=== PATIENT | female | born 1955 | race Caucasian/White ===

== ENCOUNTER 2023-06-09 19:47 | Inpatient (IN) | payer MEDICARE, OTHER, SELFPAY ==
[2023-06-09] VITALS (11 sets, daily range): BP systolic 80–165; BP diastolic 42–96; PULSE 56–179; RESP 14–30; TEMP 35.6–35.9; O2SAT 93–100; BMI 31.8; BMI 30.6
[2023-06-09] MEDS: Etomidate 20 MG/10 ML Vial IV (19:59)
[2023-06-09] MEDS: Rocuronium Bromide 50 MG/5 ML Vial IV (19:59)
[2023-06-09] MEDS: fentaNYL 100 MCG/2 ML Ampul IV (20:05)
--- NOTE | 2023-06-09 20:05 | RAD_ITS ---
STUDY: X-RAY CHEST REASON FOR EXAM: Female, 68 years old. PLACEMENT TECHNIQUE: Single AP portable view of the chest. COMPARISON: None. FINDINGS: The endotracheal tube has the tip approximately 2.2 cm above ronald. The nasogastric tube has the tip below the diaphragm but not included in the [id number]. The lungs are underexpanded with mild vascular crowding, otherwise clear. There is no demonstrated pleural abnormality. Normal size heart. Normal mediastinum and deenilson. Normal visualized pulmonary arteries. Normal visualized aortic arch and descending thoracic aorta. Normal visualized thoracic spine. Normal visualized ribs, clavicles, and shoulders. There is no demonstrated abnormality of the visualized soft tissue structures of the upper abdomen. RAD/Chest 1 View (Portable) IMPRESSION: Lines and tubes as described. No acute cardiopulmonary disease. Electronically Signed: Jaky Arredondo MD at 20:24 EDT ,
--- NOTE | 2023-06-09 20:08 | EKG12_ITS ---
Test Reason : STEMI Blood Pressure : / mmHG Vent. Rate : 054 BPM Atrial Rate : 054 BPM P-R Int : 140 ms QRS Dur : 074 ms QT Int : 412 ms P-R-T Axes : 000 036 097 degrees QTc Int : 390 ms Critical Test Result: STEMI Sinus bradycardia Low voltage QRS ST elevation consider inferolateral injury or acute infarct ACUTE HI / STEMI Consider right ventricular involvement in acute inferior infarct Abnormal ECG Confirmed by BORIS VANESSA, SILVIA ([id number]), editor sound ZACHARY BOYD ([id number]) on 06/25/2023 2:06:13 PM Referred By: Kelsey Marte Confirmed By:TIA MARTE MD
[2023-06-09 20:12] LABS: Absolute Lymphocyte Count 4.51 X10^3/uL (0.83-4.51); Absolute Neutrophil Count 4.8 X10^3/uL (2.0-7.7); Basophil# 0.06 X10^3/uL; Basophil% 0.6 % (0-1); Eosinophil# 0.19 X10^3/uL; Eosinophils% 1.8 % (0-5); Hematocrit 43.4 % (37-47); Hemoglobin 14.1 g/dL (12.0-15.0); Lymphocyte # 4.51 X10^3/ul (0.83-4.51); Lymphocyte % 43.8 % (19-41); Mean Corp Hgb Conc 32.5 g/dL (32-36); Mean Corpuscular Hgb 29.1 pg (27.0-32.0); Mean Corpuscular Volume 89.7 fL (81-99); Mean Platelet Vol. 11.5 fl (6.2-12.0); Monocyte# 0.72 X10^3/uL; NRBC Flagged by Analyzer 0 % (0-5); Neutrophil # 4.78 X10^3/uL (2.7-7.7); Neutrophil % 46.5 % (47-70); Platelet Count 269 K/mm3 (150-450); RBC Distribution Width CV 13.1 % (11.6-14.6); RBC Distribution Width SD 42.3 fl (35.1-43.9); Red Blood Count 4.84 M/mm3 (4.2-5.4); White Blood Count 10.3 K/mm3 (4.4-11.0)
[2023-06-09 20:30] LABS: Anion Gap 6 (5-15); BUN 12 mg/dL (7-18); BUN/Creat Ratio 12.4 RATIO (10-20); Calcium,Total 8.7 mg/dL (8.5-10.1); Chloride 106 mmol/L (98-107); Creatinine, Serum 0.97 mg/dL (0.55-1.02); EST Glomerular Filtration Rate 61 mL/min (>60); Est Glom Filt Rate - Afr Amer 74 mL/min (>60); Estimated Creatinine Clearance 53.41 ml/min; Glucose 167 mg/dL (74-106); Potassium 3.6 mmol/L (3.5-5.1); Sodium Level 139 mmol/L (136-145); Troponin-I HS (w/2H Reflex) 13 pg/mL (3.0-54.0)
--- NOTE | 2023-06-09 20:49 | PCM.HP.STD ---
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 Patient was driving when her chest pain started. She pulled over and called the paramedics. History was taken from emergency department doctor and patient's ED nurse as patient was unresponsive and was on mechanical ventilation at the time of examination. Reportedly patient describes the chest pain as heaviness. Her chest pain started about 45-minute before presentation. Patient was brought to emergency department by paramedics. Enroute to the hospital patient was given aspirin, Brilinta and heparin. A STEMI alert was called prehospitalization. Reportedly patient had ST elevation in leads II, III, and aVL. She had reciprocal T wave inversions. At the emergency department patient coded. Compression was done. Patient received epinephrine; amiodarone and lidocaine. Patient was shocked 2 times at the emergency department. After the first shock she went into torsades and was given magnesium. She was taken to the House Supervisor where she coded again and had ACLS with a compression and epinephrine. Also she went to V. tach so she was given amiodarone.. [facility] Medical History no medical history no medical history Home Medications NK 06/09/23 [History Last Taken Unknown] Allergy/AdvReac Type Severity Reaction Status Date / Time No Known Allergies Allergy Verified 06/09/23 20:46 unable to obtain Surgical History no surgical history unable to obtain Social History (Updated 06/09/23 @ 21:[address] Gómez Leal MD) Smoking Status: Never smoker ROS Review of Systems ROS Unobtainable: due to mental status Vital Signs Vital Signs Vital Signs: 06/09/23 19:47 06/09/23 20:47 Temperature 96.6 F L Temperature Source Temporal Pulse Rate 56 L Respiratory Rate 20 H Blood Pressure 147/94 H Blood Pressure Mean 111 Pulse Ox 98 Oxygen Delivery Method Room Air Room Air Weight Weight: 89.7 kg Body Mass Index (BMI) 31.8 Physical Exam Narrative Physical exam: General: Well-nourished, well-developed. Head: Normocephalic, atraumatic, no tenderness Eyes: Dilated pupils. Clear conjunctiva. ENT: Intubated and mechanical ventilation. Neck: Nontender, No thyromegaly. CVS: Regular rate and rhythm. S1-S2 present. No murmur, gallop or rub. Respiratory : clear to auscultation bilaterally, chest wall nontender Abdomen: Soft, nontender, nondistended, normal bowel sounds, no masses : Deferred Back: Nontender, no CVA tenderness, no midline spinal tenderness, deformities, step-offs Extremities: Symmetrical muscle mass. Skin: Normal color, no trauma, abrasions Neuro: Comatose, on mechanical ventilation. Pupils are dilated. Psychiatry: Comatose on mechanical ventilation. Results Lab / Micro Data 06/09/23 20:00 06/09/23 20:00 Labs: Laboratory Results - last 24 hr 06/09/23 20:00: WBC 10.3, RBC 4.84, Hgb 14.1, Hct 43.4, MCV 89.7, MCH 29.1, MCHC 32.5, RDW Std Deviation 42.3, RDW Coeff of Vlad 13.1, Plt Count 269, MPV 11.5, Immature Gran % (Auto) 0.300, Neut % (Auto) 46.5 L, Lymph % (Auto) 43.8 H, [place] % (Auto) 7.0, Eos % (Auto) 1.8, Baso % (Auto) 0.6, Absolute Neuts (auto) 4.8, Absolute Lymphs (auto) 4.51, Nucleated RBC % 0, Sodium 139, Potassium 3.6, Chloride 106, Carbon Dioxide 27.0, Anion Gap 6, BUN 12, Creatinine 0.97, Estim Creat Clear Calc 53.41, Est GFR (MDRD) Af Amer 74, Est GFR (MDRD) Non-Af 61, BUN/Creatinine Ratio 12.4, Glucose 167 H, Calcium 8.7, Troponin I High Sens 13 Radiology Impression Chest X-Ray 06/09/23 20:05 IMPRESSION: Lines and tubes as described. No acute cardiopulmonary disease. Electronically Signed: Jaky Arredondo MD at 20:24 EDT , Assessment & Plan Assessment/Plan (1) STEMI (ST elevation myocardial infarction): QUALIFIERS: Involved coronary artery: unspecified coronary artery Qualified Code(s): I21.3 - ST elevation (STEMI) myocardial infarction of unspecified site (2) Cardiac arrest: PLAN: Plan STEMI with cardiac arrest Taken to the House Supervisor. Cardiology to do further interventions. Follow recommendations. Patient was stabilized in CODE BLUE at a cardiac cath. Patient achieved ROSC. Amiodarone drip was ordered. Check lipid panel and A1c. CBC was reviewed. CBC was normal. Radiologist chest x-ray with no acute cardiopulmonary disease. Chest x-ray was independently interpreted; agrees with radiology interpretation. DVT prophylaxis Received heparin prehospitalization. SCDs ordered. Time spent in the patient's overall evaluation,decision-making process, review of diagnostic data, adjustment of management, discussion with other providers, nursing nursing and ancillary staff involved in patient's care documentation, 75 minutes. Charges/Coding Visit Charges Inpatient E&M: 00266 Init Hosp L3
[2023-06-09] MEDS: Amiodarone 360 MG in Dextrose 5% Viaflo Bag 192.8 ML 33.3 MG CONT INF (21:00)
--- NOTE | 2023-06-09 21:40 | ED.RN ---
Pt was given Heparin 4,000 units @ 193, 324 ASA @ 192, and 180 brilinta @ 193 by EMS. Also given a total of 3 nitro anf 4mg zofran EMS before arrival.
[2023-06-09] MEDS: EPTIFIBATIDE 75 MG/100 ML VIAL 7.2 MG CONT INF (21:45)
[2023-06-09 22:10] LABS: Reflex Troponin-HS? (from REC) Y
[2023-06-09 22:31] LABS: Allen Test Positive; Base Excess -3 mmol/L (-2 to +2); Bicarbonate 22.4 mmol/L (22-26); Blood Gas Specimen Type ART; Mode AC; O2 Delivery Device Adult Vent; PEEP 8; PO2 58 mmHG (75-100); RR 18; SITE L Radial; SO2 90 % (95-99); Total Carbon Dioxide 24 mmol/L; pCO2 37.7 mmHg (35-45); pH 7.38 (7.35-7.45)
[2023-06-09 22:45] LABS: Hematocrit 45.9 % (37-47); Hemoglobin 14.8 g/dL (12.0-15.0); Mean Corp Hgb Conc 32.2 g/dL (32-36); Mean Corpuscular Volume 89.8 fL (81-99); Mean Platelet Vol. 11.1 fl (6.2-12.0); Platelet Count 236 K/mm3 (150-450); RBC Distribution Width CV 12.9 % (11.6-14.6); RBC Distribution Width SD 42.3 fl (35.1-43.9); Red Blood Count 5.11 M/mm3 (4.2-5.4)
[2023-06-09 23:08] LABS: Troponin-I HS 901 pg/mL (3.0-54.0)
--- NOTE | 2023-06-09 23:08 | ED.VIS.CHEST ---
HPI History of Present Illness Chief Complaint: Chest Pain Informant: patient and EMS Narrative Narrative: 68-year-old female presenting to the emergency room with chief complaint of chest pain. Patient states that this afternoon/evening she was mowing her lawn. When she got off and it was in the house she noticed a chest pressure and some nausea. She associates it with some shortness of breath. She drives to the [facility] and was driving this evening when the symptoms became more severe and she needed to pulling unit floorhand. EMS was called. They note that she walked to the cot. Prehospital EKG was obtained which demonstrates changes consistent with acute inferior coronary syndrome. EMS administered Brilinta aspirin and heparin. They also gave nitroglycerin which did not significantly alter her blood pressure. Patient notes that she has no significant medical problems. There is a familial history of coronary disease with her father however she does not remember exactly what was wrong with him. She states she currently takes no medications and has no allergies. She rarely drinks alcohol does not smoke. [facility] Home Medications NK 06/09/23 [History Last Taken Unknown] Allergy/AdvReac Type Severity Reaction Status Date / Time No Known Allergies Allergy Verified 06/09/23 20:46 Social History (Updated 06/09/23 @ 23:[address] Benson Morales, DO) Smoking Status: Never smoker substance use type: does not use EXAM Physical Exam Const Vital Signs: 06/09/23 19:47 06/09/23 20:47 06/09/23 20:00 Temperature 96.6 F L Temperature Source Temporal Pulse Rate 56 L 98 Respiratory Rate 20 H 14 Blood Pressure 147/94 H Blood Pressure Mean 111 Pulse Ox 98 99 Oxygen Delivery Method Room Air Room Air Fraction of Inspired Oxygen (FIO2) 100 Positive well nourished and well developed General Appearance ED: well developed HEENT Reports normocephalic, head/scalp atraumatic and moist mucous membranes Eyes PERRL and EOMs intact bilaterally Neck no lymphadenopathy, supple and no JVD Resp normal respiratory effort and clear to auscultation bilaterally Cardio regular rate, regular rhythm and no murmurs GI normal to inspection, nondistended, normoactive bowel sounds and non-tender Palpation: soft Back/Spine no CVA tenderness and normal ROM Extremity normal to inspection General Extremety ED: Negative for edema General Extremity: Negative for edema Neuro oriented x3 and CN's II-XII intact bilaterally Sensorium / Orientation: alert Motor Exam: strength 5/5 throughout Psych mental status grossly normal Mood & Affect: Negative for depressed or tearful Skin no rashes or lesions noted and no wounds Skin Narrative: Patient is slightly diaphoretic Heart Score History: Highly Suspicious ECG: Significant ST-Depression Age: >/= 65 years Risk Factors: 1 or 2 Risk Factors Troponin: </= Normal Limit Score: 7 MDM MDM MDM Narrative Medical decision making narrative: Patient brought to resuscitation bay. Interventional cardiology as well as Box Repairer had been notified prehospital. She was expectant therefore ED staff was on hand upon her arrival. IV was established we continued supplemental oxygen and placed her on the monitor. While interviewing the patient she became unresponsive and was found to be in ventricular fibrillation. CPR was immediately started by this physician. Epinephrine was administered and circulated. At rhythm check she was in ventricular fibrillation and a 200 J shock was delivered. CPR was continued and amiodarone was administered. During this next round the patient seemingly regained consciousness was found to be in a sinus rhythm. She began to vomit and it appeared to be in torsades de pointes. The patient was holding her own emesis bag and attempting to speak looking around the room. She once again fell unconscious and went into ventricular fibrillation. Second defibrillation was given as well as lidocaine and magnesium. Patient went into a sinus rhythm with ectopy with continued ST elevation inferiorly. Patient underwent rapid sequence intubation using etomidate and rocuronium. An 8?0 endotracheal tube was placed on the first attempt without any difficulty and secured into place at 24 cm. Equal breath sounds bilaterally color change capnography and my interpretation of the chest x-ray postintubation is adequate placement of the endotracheal tube. The chest x-ray also demonstrated a normal mediastinal silhouette. No effusion or evidence of significant pulmonary edema. OG tube was then placed by this physician. IV fluids were continued and she was placed on a propofol drip. Patient briefly became hypotensive which resolved. Box Repairer was ready and we took the patient to the Box Repairer in critical condition. Initial blood work returned which showed a troponin of 13 hemoglobin 14.1 and a creatinine 0.97. Interventional cardiology was updated as well as hospitalist. History & Record Review Discussion w/independent historian: EMS personnel and Patient Additional record(s) reviewed:: No prior records Lab Data Attestation: I reviewed the patient's lab results. Labs: Laboratory Results - last 24 hr 06/09/23 20:00 WBC 10.3 RBC 4.84 Hgb 14.1 Hct 43.4 MCV 89.7 MCH 29.1 MCHC 32.5 RDW Std Deviation 42.3 RDW Coeff of Vlad 13.1 Plt Count 269 MPV 11.5 Immature Gran % (Auto) 0.300 Neut % (Auto) 46.5 L Lymph % (Auto) 43.8 H Turner % (Auto) 7.0 Eos % (Auto) 1.8 Baso % (Auto) 0.6 Absolute Neuts (auto) 4.8 Absolute Lymphs (auto) 4.51 Nucleated RBC % 0 Sodium 139 Potassium 3.6 Chloride 106 Carbon Dioxide 27.0 Anion Gap 6 BUN 12 Creatinine 0.97 Estim Creat Clear Calc 53.41 Est GFR (MDRD) Af Amer 74 Est GFR (MDRD) Non-Af 61 BUN/Creatinine Ratio 12.4 Glucose 167 H Calcium 8.7 Troponin I High Sens 13 Radiography Diagnostic Testing: Clinical Impression(s) from Imaging Studies Chest X-Ray 06/09/23 20:05 IMPRESSION: Lines and tubes as described. No acute cardiopulmonary disease. Electronically Signed: Jayk Arredondo MD at 20:24 EDT , EKG Initial EKG: Attestation: I personally reviewed and interpreted this EKG as follows: Interpretation: Sinus Rhythm Comments: Inferior elevation 2 3 aVF with reciprocal changes. Prior EKG tracings: not available for review Prior: No Prior Management Discussion w/another healthcare provider: Hospitalist and Kennel Helper (Interventional cardiology) Critical Care Time Critical Care Time: Yes Critical care time (excluding procedures): 30-74 minutes (35 min), Including time spent:, Discussing w/Patient &/or Family/Certified Midwife, Discussing w/Consultants, Arranging Admission or Transfer and Performing Direct Patient Care at Bedside Discharge Plan Disposition Disposition: Acute Care Hospital [facility] Discharge Date/Time: 06/09/23 20:14
[2023-06-09] MEDS: fentaNYL drip 100 ML 2.5 MCG CONT INF (23:15)
[2023-06-09] MEDS: Propofol 10MG/Ml 1,000 MG/100 ML Bottle 5.4 MG CONT INF (23:15)
[2023-06-09] MEDS: 0.9% Saline Lock 10 ML Syringe IV ×2 (23:22→23:42)
[2023-06-09] MEDS: Ondansetron 4 MG/2 ML Vial IV (23:22)
[2023-06-09 23:23] LABS: CPK Total, Creatine Kinase 155 U/L (26-192); Triglycerides 113 mg/dL
[2023-06-09] MEDS: Chlorhexidine 15 ML PO (23:44)
[2023-06-09] MEDS: TICAGRELOR 90 MG TABLET PO (23:46)
[2023-06-09] MEDS: Atorvastatin Calcium 40 MG Tablet PO (23:47)
[2023-06-10] VITALS (35 sets, daily range): BP systolic 66–119; BP diastolic 50–72; PULSE 53–61; RESP 14–18; TEMP 36.3–38.5; O2SAT 92–100; BMI 30.6
[2023-06-10] MEDS: 0.9% Normal Saline 1,000 ML 999 ML IV ×2 (01:35→03:45)
[2023-06-10 02:09] LABS: Hematocrit 39.4 % (37-47); Hemoglobin 12.7 g/dL (12.0-15.0); Mean Corp Hgb Conc 32.2 g/dL (32-36); Mean Corpuscular Hgb 29.2 pg (27.0-32.0); Mean Corpuscular Volume 90.6 fL (81-99); Mean Platelet Vol. 11.3 fl (6.2-12.0); Platelet Count 247 K/mm3 (150-450); RBC Distribution Width CV 13.1 % (11.6-14.6); RBC Distribution Width SD 43.2 fl (35.1-43.9); Red Blood Count 4.35 M/mm3 (4.2-5.4); White Blood Count 10.9 K/mm3 (4.4-11.0)
[2023-06-10 02:30] LABS: Hemoglobin A1c 6.9 % (3.8-5.6)
[2023-06-10 02:31] LABS: Phosphorus 3.6 mg/dL (2.5-4.9)
[2023-06-10 02:59] LABS: AST(SGOT) 335 U/L (15-37); Alanine Aminotransfer ALT/SGPT 229 U/L (13-56); Albumin, Serum 2.7 g/dL (3.2-5.0); Alkaline Phosphatase 56 U/L (45-117); Anion Gap 9 (5-15); BUN 11 mg/dL (7-18); BUN/Creat Ratio 10.6 RATIO (10-20); Calcium,Total 7.2 mg/dL (8.5-10.1); Chloride 106 mmol/L (98-107); Cholesterol 224 mg/dL (200); Creatinine, Serum 1.04 mg/dL (0.55-1.02); EST Glomerular Filtration Rate 56 mL/min (>60); Est Glom Filt Rate - Afr Amer 68 mL/min (>60); Estimated Creatinine Clearance 49.81 ml/min; Globulin 2.8 g/dL (2.2-4.2); Glucose 262 mg/dL (74-106); High Density Lipoprotein 33 mg/dL; Magnesium 2.4 mg/dL (1.6-2.6); Potassium 3.4 mmol/L (3.5-5.1); Protein, Total 5.5 g/dL (6.4-8.2); Sodium Level 139 mmol/L (136-145); Triglycerides 156 mg/dL; Very Low Density Lipoprotein 31 mg/dL (5-40)
[2023-06-10] MEDS: Amiodarone 360 MG in Dextrose 5% Viaflo Bag 192.8 ML 16.7 MG CONT INF (03:01)
[2023-06-10] MEDS: proCHLORPERazine 10 MG/2 ML Vial 5 MG IV (04:01)
[2023-06-10] MEDS: CHLORHEXIDINE GLUC 2% CLOTH 1 EACH TOWELETTE TOPICAL (04:02)
[2023-06-10] MEDS: EPTIFIBATIDE 75 MG/100 ML VIAL 7.2 MG CONT INF (04:04)
--- NOTE | 2023-06-10 06:08 | CON.PCM.CC_ITS ---
Assessment & Plan Assessment/Plan (1) Cardiac arrest: (2) STEMI (ST elevation myocardial infarction): QUALIFIERS: Involved coronary artery: unspecified coronary artery Qualified Code(s): I21.3 - ST elevation (STEMI) myocardial infarction of unspecified site PLAN: Plan RECOMMENDATIONS: 1. Continue assist-control mode of mechanical ventilation. Wean FiO2/PEEP to maintain oxygen saturations at or above 90%. 2. Continue propofol and fentanyl for sedation. 3. If needed, Levophed can be initiated to maintain hemodynamic stability. 4. Obtain echocardiogram. 5. Continue appropriate GI prophylaxis. 6. Hold on tube feed initiation today. 7. Plan for daily paired spontaneous awakening and breathing trials beginning tomorrow. IMPRESSIONS: 1. Acute hypoxemic respiratory failure status post cardiac arrest The patient presented to the hospital initially with chest pain and subsequently experienced a V-fib cardiac arrest, with eventual ROSC following ACLS. She was taken to the cardiac catheterization lab where intervention was ultimately performed. The patient will be continued on assist control mode of mechanical ventilation. FiO2 and PEEP can be weaned to maintain oxygen saturations at or above 90%. 2. V-fib cardiac arrest The patient is status postintervention by cardiology. Plan to continue current supportive care with ongoing medical management, per cardiology recommendations. 3. Elevated transaminases Likely secondary to tissue hypoperfusion in the setting of cardiac arrest. Continue to trend liver function profile. 4. Hypokalemia Electrolyte repletion as ordered. Recheck chemistry profile in the morning. TIME: 35 minutes of critical care time, independent of procedures, was spent addressing the patient's acute hypoxemic respiratory failure, status post V-fib cardiac arrest, review of all data and collaboration with the care team. HPI Consult Data Date of Consult: 06/11/23 HPI Narrative Reason for Consultation: Respiratory failure HPI Narrative: The patient is a 68-year-old female, with a history as outlined below, who presented to the emergency department via EMS on June 09 with chest pain. The patient apparently developed chest discomfort after mowing her lawn. History pertinent to her hospitalization was obtained primarily via chart review, as the patient is currently intubated and sedated. On presentation to the emergency department, the patient was initially noted to be afebrile and hemodynamically stable. Prehospital EKG obtained by EMS services demonstrated findings concerning for acute coronary syndrome. Shortly after arriving to the emergency department, the patient became unresponsive and was noted to be in ventricular fibrillation. ACLS was initiated and defibrillation was performed. Multiple rounds of ACLS was completed with epinephrine, lidocaine and magnesium administered, prior to ROSC. She was emergently intubated. The patient was urgently taken to the cardiac catheteri zation lab, where intervention was performed. Postintervention, the patient was transferred to the medical intensive care unit for further management. Creatinine is mildly elevated at 1.04. The patient remains on assist control mode of mechanical ventilation with minimal support requirement. [facility] Medical History no medical history Home Medications NK 06/09/23 [History Last Taken Unknown] Allergy/AdvReac Type Severity Reaction Status Date / Time No Known Allergies Allergy Verified 06/09/23 20:46 Family History unable to obtain Surgical History unable to obtain Social History (Updated 06/09/23 @ 23:[address] Benson Morales, DO) Smoking Status: Never smoker substance use type: does not use ROS Review of Systems ROS Unobtainable: due to endotracheal tube Physical Exam Const Constitutional Narrative: Intubated, sedated and mechanically ventilated. No ventilator dyssynchrony. HEENT normocephalic and head/scalp atraumatic Mouth: endotracheal tube in place Eyes PERRL, EOMs intact bilaterally and conjunctivae normal Neck supple General: trachea midline Chest inspection of chest normal Resp normal respiratory effort Auscultation: Negative for rales, rhonchi or wheezes Cardio S1 normal heart sound and S2 normal heart sound Rate: bradycardia GI normal to inspection, nondistended, normoactive bowel sounds Extremity no clubbing, cyanosis or edema Skin no rashes or lesions noted Neuro Sensorium / Orientation: sedated on vent Lab / Micro Data 06/11/23 04:20 06/11/23 04:20 Labs: Laboratory Results - last 24 hr 06/09/23 20:00: WBC 10.3, RBC 4.84, Hgb 14.1, Hct 43.4, MCV 89.7, MCH 29.1, MCHC 32.5, RDW Std Deviation 42.3, RDW Coeff of Vlad 13.1, Plt Count 269, MPV 11.5, Immature Gran % (Auto) 0.300, Neut % (Auto) 46.5 L, Lymph % (Auto) 43.8 H, [place] % (Auto) 7.0, Eos % (Auto) 1.8, Baso % (Auto) 0.6, Absolute Neuts (auto) 4.8, Absolute Lymphs (auto) 4.51, Nucleated RBC % 0, Sodium 139, Potassium 3.6, Chloride 106, Carbon Dioxide 27.0, Anion Gap 6, BUN 12, Creatinine 0.97, Estim Creat Clear Calc 53.41, Est GFR (MDRD) Af Amer 74, Est GFR (MDRD) Non-Af 61, BUN/Creatinine Ratio 12.4, Glucose 167 H, Calcium 8.7, Troponin I High Sens 13 06/09/23 22:38: WBC 15.0 H, RBC 5.11, Hgb 14.8, Hct 45.9, MCV 89.8, MCH 29.0, MCHC 32.2, RDW Std Deviation 42.3, RDW Coeff of Vlad 12.9, Plt Count 236, MPV 11.1, Total Creatine Kinase 155, Troponin I High Sens 901 H*, Triglycerides 113 06/10/23 02:00: WBC 10.9, RBC 4.35, Hgb 12.7, Hct 39.4, MCV 90.6, MCH 29.2, MCHC 32.2, RDW Std Deviation 43.2, RDW Coeff of Vlad 13.1, Plt Count 247, MPV 11.3, Sodium 139, Potassium 3.4 L, Chloride 106, Carbon Dioxide 24.0, Anion Gap 9, BUN 11, Creatinine 1.04 H, Estim Creat Clear Calc 49.81, Est GFR (MDRD) Af Amer 68, Est GFR (MDRD) Non-Af 56 L, BUN/Creatinine Ratio 10.6, Glucose 262 H, Hemoglobin A1c 6.9 H, Calcium 7.2 L, Phosphorus 3.6, Magnesium 2.4, Total Bilirubin 0.90, AST 335 H, ALT 229 H, Alkaline Phosphatase 56, Total Protein 5.5 L, Albumin 2.7 L, Globulin 2.8, Albumin/Globulin Ratio 1.0, Triglycerides 156, Cholesterol 224 H, LDL Cholesterol 160 H, VLDL Cholesterol 31, HDL Cholesterol 33 L ABG Data ABG results: ABG 06/09/23 22:26 Specimen Type ART Sample Site L Radial pH 7.38 Bicarbonate Actual 22.4 Total CO2 24 Base Excess -3 L O2 Saturation 90 L O2 % 100.0 ABG pCO2 37.7 ABG pO2 58 L Josh Test Positive Respiration Rate 18 O2 Delivery Device Adult Vent Vent Mode AC Tidal Volume 450.0 POC PEEP 8 Radiology Impression Chest X-Ray 06/09/23 20:05 IMPRESSION: Lines and tubes as described. No acute cardiopulmonary disease. Electronically Signed: Jaky Arredondo MD at 20:24 EDT , Charges/Coding Procedures Hospitalists Procedures: [id number] Critial Care 1st Hr
[2023-06-10 06:37] LABS: Hemoglobin 12.3 g/dL (12.0-15.0); Mean Corp Hgb Conc 32.4 g/dL (32-36); Mean Corpuscular Hgb 29.4 pg (27.0-32.0); Mean Corpuscular Volume 90.9 fL (81-99); Mean Platelet Vol. 11.5 fl (6.2-12.0); Platelet Count 211 K/mm3 (150-450); RBC Distribution Width CV 13.2 % (11.6-14.6); RBC Distribution Width SD 43.6 fl (35.1-43.9); Red Blood Count 4.18 M/mm3 (4.2-5.4)
--- NOTE | 2023-06-10 07:06 | ECHOCS_ITS ---
Reason For Study: s/p OR Procedure This was a 2D Doppler, Color Flow transthoracic echocardiogram. Contrast injection was performed. Exam performed portable in ICU/CCU. Left Ventricle Normal LV size. The estimated ejection fraction is 50-55 %. Right Ventricle Normal right ventricle. Normal systolic function. Atria Normal left atrium. Normal right atrium. Mitral Valve The mitral valve is structurally normal. No prolapse or stenosis seen. Trivial mitral valve insufficiency. Aortic Valve The aortic valve is not well visualized. Pulmonic Valve The pulmonic valve is not well visualized. Great Vessels Normal aortic root. Pericardium/Pleural No pericardial effusion. Medication Diluted definity 1.5ml given slow IV push to enhance endocardial definition. MMode/2D Measurements & Calculations LVIDd: 4.8 cm IVSd: 0.79 cm Ao root diam: 3.0 cm LVIDs: 2.9 cm LVPWd: 0.86 cm RVDd: 2.5 cm FS: 40.2 % LAV(MOD-bp): 49.3 ml LVAd ap4: 27.0 cm2 SV(MOD-sp4): 48.6 ml LAV(MOD-bp) Indexed: 25.2 ml/m2 LVLd ap4: 8.0 cm LAV(MOD-sp2): 42.0 ml EDV(MOD-sp4): 76.8 ml LAV(MOD-sp4): 54.6 ml EDV(sp4-el): 77.7 ml LVAs ap4: 14.2 cm2 LVLs ap4: 6.3 cm ESV(MOD-sp4): 28.2 ml ESV(sp4-el): 27.0 ml EF(MOD-sp4): 63.3 % EF(sp4-el): 65.3 % SV(sp4-el): 50.7 ml LA A4 area: 20.1 cm2 LA dimension(2D): 3.7 cm RA A4 area: 8.8 cm2 Time Measurements MV dec time: 0.20 sec Doppler Measurements & Calculations MV E max javy: 70.6 cm/sec Lat Peak E' Javy: 8.5 cm/sec Med Peak E' Javy: 8.8 cm/sec MV A max javy: 95.8 cm/sec E/E' lat: 8.3 E/E' med: 8.0 MV E/A: 0.74 Ao V2 max: 156.1 cm/sec LV V1 max: 116.2 cm/sec MV dec slope: 346.3 cm/sec2 Ao max P.8 mmHg LV V1 max P.4 mmHg Ao V2 mean: 103.7 cm/sec Ao mean P.0 mmHg Ao V2 VTI: 34.1 cm PA V2 max: 77.7 cm/sec TR max javy: 241.5 cm/sec TR max P.3 mmHg ECHO/Echo Complete W/ Contrast Interpretation Summary The estimated ejection fraction is 50-55 %. No significant valvular abnormality noted No prior echocardiogram to compare. Ordering Physician: Jarrett Escobar Referring Physician: Kelsey Marte Performed By: Yolanda Sol, RDCS, RVT
[2023-06-10] MEDS: TITRATION PARAMETER CHANGE 1 EACH IV (07:30)
--- NOTE | 2023-06-10 07:30 | PCM.PN.HOSP ---
Reason for Visit Reason for Visit: Diagnoses ST elevation (STEMI) myocardial infarction of unspecified site (06/09/23) Cardiac arrest, cause unspecified (06/09/23) Subjective Subjective On ventilator. Denying any current pain. Objective Data Objective Data Vital Signs: Vital Signs Temp Pulse Resp BP Pulse Ox O2 Del Method FiO2 37.7 C H 56 L 16 87/70 L 95 Mechanical Ventilator 40 06/10/23 06:00 06/10/23 07:00 06/10/23 07:00 06/10/23 07:00 06/10/23 07:00 06/10/23 07:00 06/10/23 07:00 Oxygen Delivery Method Mechanical Ventilator Weight: 86.5 kg Body Mass Index (BMI) 30.6 Intake & Output: Intake and Output for Last 24 Hours 06/08/23 06/09/23 06/10/23 23:59 23:59 23:59 Intake Total 53.33 / 57.18 2844.38 / 2844.38 Output Total 1950 / 1950 1050 / 1050 Balance -1896.67 / -1892.82 1794.38 / 1794.38 Lab / Micro Data 06/10/23 06:10 06/10/23 02:00 Labs: Laboratory Results - last 24 hr 06/09/23 20:00: WBC 10.3, RBC 4.84, Hgb 14.1, Hct 43.4, MCV 89.7, MCH 29.1, MCHC 32.5, RDW Std Deviation 42.3, RDW Coeff of Vlad 13.1, Plt Count 269, MPV 11.5, Immature Gran % (Auto) 0.300, Neut % (Auto) 46.5 L, Lymph % (Auto) 43.8 H, [place] % (Auto) 7.0, Eos % (Auto) 1.8, Baso % (Auto) 0.6, Absolute Neuts (auto) 4.8, Absolute Lymphs (auto) 4.51, Nucleated RBC % 0, Sodium 139, Potassium 3.6, Chloride 106, Carbon Dioxide 27.0, Anion Gap 6, BUN 12, Creatinine 0.97, Estim Creat Clear Calc 53.41, Est GFR (MDRD) Af Amer 74, Est GFR (MDRD) Non-Af 61, BUN/Creatinine Ratio 12.4, Glucose 167 H, Calcium 8.7, Troponin I High Sens 13 06/09/23 22:38: WBC 15.0 H, RBC 5.11, Hgb 14.8, Hct 45.9, MCV 89.8, MCH 29.0, MCHC 32.2, RDW Std Deviation 42.3, RDW Coeff of Vlad 12.9, Plt Count 236, MPV 11.1, Total Creatine Kinase 155, Troponin I High Sens 901 H*, Triglycerides 113 06/10/23 02:00: WBC 10.9, RBC 4.35, Hgb 12.7, Hct 39.4, MCV 90.6, MCH 29.2, MCHC 32.2, RDW Std Deviation 43.2, RDW Coeff of Vlad 13.1, Plt Count 247, MPV 11.3, Sodium 139, Potassium 3.4 L, Chloride 106, Carbon Dioxide 24.0, Anion Gap 9, BUN 11, Creatinine 1.04 H, Estim Creat Clear Calc 49.81, Est GFR (MDRD) Af Amer 68, Est GFR (MDRD) Non-Af 56 L, BUN/Creatinine Ratio 10.6, Glucose 262 H, Hemoglobin A1c 6.9 H, Calcium 7.2 L, Phosphorus 3.6, Magnesium 2.4, Total Bilirubin 0.90, AST 335 H, ALT 229 H, Alkaline Phosphatase 56, Total Protein 5.5 L, Albumin 2.7 L, Globulin 2.8, Albumin/Globulin Ratio 1.0, Triglycerides 156, Cholesterol 224 H, LDL Cholesterol 160 H, VLDL Cholesterol 31, HDL Cholesterol 33 L 06/10/23 06:10: WBC 8.0, RBC 4.18 L, Hgb 12.3, Hct 38.0, MCV 90.9, MCH 29.4, MCHC 32.4, RDW Std Deviation 43.6, RDW Coeff of Vlad 13.2, Plt Count 211, MPV 11.5 ABG Data ABG results: ABG 06/09/23 22:26 Specimen Type ART Sample Site L Radial pH 7.38 Bicarbonate Actual 22.4 Total CO2 24 Base Excess -3 L O2 Saturation 90 L O2 % 100.0 ABG pCO2 37.7 ABG pO2 58 L Josh Test Positive Respiration Rate 18 O2 Delivery Device Adult Vent Vent Mode AC Tidal Volume 450.0 POC PEEP 8 Radiography Diagnostic Testing: Radiology Impression Chest X-Ray 06/09/23 20:05 IMPRESSION: Lines and tubes as described. No acute cardiopulmonary disease. Electronically Signed: Jaky Arredondo MD at 20:24 EDT , Physical Exam Const alert and no apparent distress Constitutional Narrative: intubated. HEENT head/scalp atraumatic and moist oral mucous membranes Resp normal respiratory effort, no retractions, no use of accessory muscles and clear to auscultation bilaterally Cardio regular rate, regular rhythm, S1 normal heart sound and S2 normal heart sound GI normal to inspection, nondistended, normoactive bowel sounds, soft to palpation, non-tender, non-distended and hepatosplenomegaly Extremity normal to inspection Neuro moves all extremities and no focal motor deficits Assessment & Plan Assessment/Plan (1) STEMI (ST elevation myocardial infarction): QUALIFIERS: Involved coronary artery: unspecified coronary artery Qualified Code(s): I21.3 - ST elevation (STEMI) myocardial infarction of unspecified site PLAN: s/p PCI w BASILIA to RCA on ASA, ticagrelor, statin. continue Integrellin per cardiology. check echo cardiology following. (2) Cardiac arrest: PLAN: Vfib arrest in ED. Received epinephrine and subsequent defibrillation. Started on amiodarone gtt. Developed sinus rhythm. Subsequently developed torsade de pointes, then vfib arrest again. Defbrillabated again. Then received lidocaine and magnesium with conversion to sinus rhythm. Likely secondary to STEMI. Continue amiodarone gtt. (3) Acute respiratory failure with hypoxia: PLAN: Secondary to cardiac arrest ABG w pO2 of 58. Intubated in ED. Vent mgmt per CCM (4) Cardiogenic shock: PLAN: Improved 2/2 STEMI BP dropped down to 66/50. norepinephrine if needed. (5) Hyperglycemia: PLAN: may be reactive, but cannot rule out undiagnosed diabetes start SSI check a1c. (6) Hypokalemia: PLAN: replacement ordered monitor PLAN: Plan VTE prophylaxis: SCDs DW patient's family at [facility]. Charges/Coding Visit Charges Inpatient E&M: 73747 Subs Hosp L3
[2023-06-10] MEDS: Aspirin E.C. 81 MG Tablet PO (08:02)
[2023-06-10] MEDS: Potassium Chloride 10mEq/100mL 10 MEQ/100 ML IV.SOLN. 100 MEQ IV BOLUS ×4 (08:02→11:21)
[2023-06-10] MEDS: TICAGRELOR 90 MG TABLET PO ×2 (08:03→22:21)
[2023-06-10] MEDS: Chlorhexidine 15 ML PO ×2 (08:03→22:25)
[2023-06-10] MEDS: Famotidine 20 MG Tablet PO ×2 (08:03→22:22)
[2023-06-10 08:52] LABS: Hemoglobin A1c 6.9 % (3.8-5.6)
[2023-06-10] MEDS: 0.9% Saline Lock 10 ML Syringe IV (11:21)
[2023-06-10] MEDS: Insulin Lispro 100 UNIT/ML INSULN.PEN SC (11:26)
[2023-06-10 11:41] LABS: Bedside Glucose 159 mg/dL (74-106)
--- NOTE | 2023-06-10 12:05 | PCM.CONS.C ---
Assessment & Plan Assessment/Plan (1) STEMI (ST elevation myocardial infarction): QUALIFIERS: Involved coronary artery: unspecified coronary artery Qualified Code(s): I21.3 - ST elevation (STEMI) myocardial infarction of unspecified site PLAN: Continue dual antiplatelet therapy, statin. Patient's blood pressure is on the low side. She required Levophed yesterday. If her blood pressure remains stable overnight then we will start her on a beta-deborah tomorrow. Okay to discontinue Integrilin. (2) Cardiac arrest: PLAN: Secondary to V-fib secondary to inferior ST elevation [place]. No further events after revascularization. Okay to discontinue amiodarone. (3) Cardiogenic shock: PLAN: Improving. Currently off pressors. Will monitor. (4) Acute respiratory failure with hypoxia: HPI Consult Data Date of Consult: 06/10/23 HPI Narrative Reason for Consultation: STEMI HPI Narrative: ALEJANDRA SAWYER, is a 68 F who presents with chest pain. She had called 911 and the EKG done outside the hospital revealed inferior ST elevation [place] and a STEMI alert was called. Soon after presenting to the emergency room patient went into V-fib cardiac arrest and was defibrillated. She subsequently again went into torsades and was also having vomiting. She was intubated and brought emergently to the cardiac Warning Coordination Meteorologist. In the Warning Coordination Meteorologist, prior to getting draped patient again went into V-fib arrest followed by asystole. Resuscitation was performed according to ACLS protocol and eventually patient returned to normal sinus rhythm. She went emergent coronary angiography which revealed 100% occlusion of the RCA that was treated with thrombectomy and drug-eluting stent placement. Patient was initially hypotensive requiring Levophed. Her blood pressure improved at the end of the procedure and Levophed was tapered off. Patient was also given 3 A of bicarb. Initially she was hypoxic on 100% FiO2. Her PEEP was increased and eventually her O2 sats improved. Patient was then transferred to the CCU for further management. Overnight she had an uneventful course. She was on amnio drip and Integrilin drip overnight. Patient started waking up and was responding to commands and responding to questions appropriately. Her Integrilin and amiodarone are being discontinued and she is on low-dose sedation and tolerating it well. Review of systems: Review of systems cannot be obtained as patient is intubated and sedated. [facility] Medical History no medical history Home Medications NK 06/09/23 [History Last Taken Unknown] Allergy/AdvReac Type Severity Reaction Status Date / Time No Known Allergies Allergy Verified 06/09/23 20:46 Family History unable to obtain Surgical History unable to obtain Social History (Updated 06/09/23 @ 23:[address] Benson Morales, DO) Smoking Status: Never smoker substance use type: does not use Physical Exam Const Constitutional Narrative: Intubated, sedated HEENT normocephalic Eyes no scleral icterus Resp clear to auscultation bilaterally Cardio regular rate Extremity no pedal edema Skin no rashes or lesions noted Risk Stratification Risk Stratification Applicable: No Charges/Coding Visit Charges Inpatient E&M: 44927 Init Hosp L2 Objective Data Vital Signs: Vital Signs Temp Pulse Resp BP Pulse Ox O2 Del Method FiO2 100.7 F H 59 L 14 119/68 92 Mechanical Ventilator 30 06/10/23 10:00 06/10/23 11:00 06/10/23 11:00 06/10/23 11:00 06/10/23 11:00 06/10/23 11:00 06/10/23 11:00 Oxygen Delivery Method Mechanical Ventilator Weight: 190 lb 11.198 oz Body Mass Index (BMI) 30.6 Intake & Output: Intake and Output for Last 24 Hours 06/08/23 06/09/23 06/10/23 23:59 23:59 23:59 Intake Total 53.33 / 57.18 3420.88 / 3420.88 Output Total 1950 / 1950 1050 / 1050 Balance -1896.67 / -1892.82 2370.88 / 2370.88 Lab / Micro Data 06/10/23 06:10 06/10/23 02:00 Labs: Laboratory Results - last 24 hr 06/09/23 20:00: WBC 10.3, RBC 4.84, Hgb 14.1, Hct 43.4, MCV 89.7, MCH 29.1, MCHC 32.5, RDW Std Deviation 42.3, RDW Coeff of Vlad 13.1, Plt Count 269, MPV 11.5, Immature Gran % (Auto) 0.300, Neut % (Auto) 46.5 L, Lymph % (Auto) 43.8 H, [place] % (Auto) 7.0, Eos % (Auto) 1.8, Baso % (Auto) 0.6, Absolute Neuts (auto) 4.8, Absolute Lymphs (auto) 4.51, Nucleated RBC % 0, Sodium 139, Potassium 3.6, Chloride 106, Carbon Dioxide 27.0, Anion Gap 6, BUN 12, Creatinine 0.97, Estim Creat Clear Calc 53.41, Est GFR (MDRD) Af Amer 74, Est GFR (MDRD) Non-Af 61, BUN/Creatinine Ratio 12.4, Glucose 167 H, Calcium 8.7, Troponin I High Sens 13 06/09/23 22:38: WBC 15.0 H, RBC 5.11, Hgb 14.8, Hct 45.9, MCV 89.8, MCH 29.0, MCHC 32.2, RDW Std Deviation 42.3, RDW Coeff of Vlad 12.9, Plt Count 236, MPV 11.1, Total Creatine Kinase 155, Troponin I High Sens 901 H*, Triglycerides 113 06/10/23 02:00: WBC 10.9, RBC 4.35, Hgb 12.7, Hct 39.4, MCV 90.6, MCH 29.2, MCHC 32.2, RDW Std Deviation 43.2, RDW Coeff of Vlad 13.1, Plt Count 247, MPV 11.3, Sodium 139, Potassium 3.4 L, Chloride 106, Carbon Dioxide 24.0, Anion Gap 9, BUN 11, Creatinine 1.04 H, Estim Creat Clear Calc 49.81, Est GFR (MDRD) Af Amer 68, Est GFR (MDRD) Non-Af 56 L, BUN/Creatinine Ratio 10.6, Glucose 262 H, Hemoglobin A1c 6.9 H, Calcium 7.2 L, Phosphorus 3.6, Magnesium 2.4, Total Bilirubin 0.90, AST 335 H, ALT 229 H, Alkaline Phosphatase 56, Total Protein 5.5 L, Albumin 2.7 L, Globulin 2.8, Albumin/Globulin Ratio 1.0, Triglycerides 156, Cholesterol 224 H, LDL Cholesterol 160 H, VLDL Cholesterol 31, HDL Cholesterol 33 L 06/10/23 06:10: WBC 8.0, RBC 4.18 L, Hgb 12.3, Hct 38.0, MCV 90.9, MCH 29.4, MCHC 32.4, RDW Std Deviation 43.6, RDW Coeff of Vlad 13.2, Plt Count 211, MPV 11.5, Hemoglobin A1c 6.9 H 06/10/23 11:23: POC Glucose 159 H Micro: Microbiology 06/09/23 23:50 Sputum, Tracheal Aspirate Gram Stain - Final ABG Data ABG results: ABG 06/09/23 22:26 Specimen Type ART Sample Site L Radial pH 7.38 Bicarbonate Actual 22.4 Total CO2 24 Base Excess -3 L O2 Saturation 90 L O2 % 100.0 ABG pCO2 37.7 ABG pO2 58 L Josh Test Positive Respiration Rate 18 O2 Delivery Device Adult Vent Vent Mode AC Tidal Volume 450.0 POC PEEP 8 Cardiology Labs/Tests 06/09/23 20:00: WBC 10.3, RBC 4.84, Hgb 14.1, Hct 43.4, MCV 89.7, MCH 29.1, MCHC 32.5, Plt Count 269, MPV 11.5, Immature Gran % (Auto) 0.300, Neut % (Auto) 46.5 L, Lymph % (Auto) 43.8 H, [place] % (Auto) 7.0, Eos % (Auto) 1.8, Baso % (Auto) 0.6, Absolute Neuts (auto) 4.8, Nucleated RBC % 0, Sodium 139, Potassium 3.6, Chloride 106, Carbon Dioxide 27.0, Anion Gap 6, BUN 12, Creatinine 0.97, Est GFR (MDRD) Af Amer 74, Est GFR (MDRD) Non-Af 61, BUN/Creatinine Ratio 12.4, Glucose 167 H, Calcium 8.7 06/09/23 22:26: pH 7.38, Bicarbonate Actual 22.4, Base Excess -3 L, O2 Saturation 90 L, ABG pCO2 37.7, ABG pO2 58 L, Josh Test Positive 06/09/23 22:38: WBC 15.0 H, RBC 5.11, Hgb 14.8, Hct 45.9, MCV 89.8, MCH 29.0, MCHC 32.2, Plt Count 236, MPV 11.1, Triglycerides 113 06/10/23 02:00: WBC 10.9, RBC 4.35, Hgb 12.7, Hct 39.4, MCV 90.6, MCH 29.2, MCHC 32.2, Plt Count 247, MPV 11.3, Sodium 139, Potassium 3.4 L, Chloride 106, Carbon Dioxide 24.0, Anion Gap 9, BUN 11, Creatinine 1.04 H, Est GFR (MDRD) Af Amer 68, Est GFR (MDRD) Non-Af 56 L, BUN/Creatinine Ratio 10.6, Glucose 262 H, Hemoglobin A1c 6.9 H, Calcium 7.2 L, Phosphorus 3.6, Magnesium 2.4, Total Bilirubin 0.90, Triglycerides 156, Cholesterol 224 H, LDL Cholesterol 160 H, VLDL Cholesterol 31, HDL Cholesterol 33 L 06/10/23 06:10: WBC 8.0, RBC 4.18 L, Hgb 12.3, Hct 38.0, MCV 90.9, MCH 29.4, MCHC 32.4, Plt Count 211, MPV 11.5, Hemoglobin A1c 6.9 H Rhythm: EKG: ECHO: Stress Test: Cardiac Cath: PCI: CT Surgery: Holter monitor: EPS: PPM: CXR: Chest CT Scan: Radiography Diagnostic Testing: Radiology Impression Chest X-Ray 06/09/23 20:05 IMPRESSION: Lines and tubes as described. No acute cardiopulmonary disease. Electronically Signed: Jaky Arredondo MD at 20:24 EDT ,
--- NOTE | 2023-06-10 12:55 | CL.I_ITS ---
Patient Name: ALEJANDRA THOMAS Study Date: 06/09/2023 Performing: Ceferino Marte MD Ht: 66 inches 167.64 cm : 1955 Wt: 197.75 lbs 89.7 kg Age: 68 Gender: female BSA: 1.99 PROCEDURE(S) PERFORMED DC01-(48127)LHC/COR/LV IC16-(81013/[id number])AMI, BASILIA OR PTCA, ARTERY/GRAFT, SINGLE VESSEL CLINICAL PROFILE AND CO-MORBIDITIES Indications: ACS <= 24 hrs Heart Failure: None CAD Presentations: STEMI. Symptom onset Date/Time: 06/09/23 Time Not Available Other: Cardiac arrest CONCLUSIONS Multivessel coronary artery disease as described with 100% occlusion of the RCA with thrombus that is the culprit for patient's presentation. LVEF is 45 to 50% with inferior hypokinesis. No significant aortic stenosis or mitral regurgitation. Successful thrombectomy and drug-eluting stent placement to proximal RCA. RECOMMENDATIONS DESCRIPTION OF PROCEDURE The patient arrived to the procedure lab. The risks and benefits of the procedure as well as a full description of our services here and lack of surgical backup were fully explained to the patient and/or their significant other prior to the catheterization. The Timeout was completed, verifying the correct patient and procedure. The patient's procedural site was prepped and draped in the usual fashion. Local anesthetic was given subcutaneously to right radial region with Lidocaine 2%. Using a modified Seldinger technique, arterial access was obtained via the right radial artery, a 6Fr sheath was inserted.. Right Coronary Artery selective angiography was then performed in multiple views using a 6 Fr. JR4 Guide catheter. Left Coronary Artery selective angiography was performed in multiple views using a 5 Fr. JL3.5 catheter. Left Coronary Artery selective angiography was performed in multiple views using a 6 Fr. XB 3.0. Left Ventriculography was performed in MACKEY projection using a 5 Fr. Pigtail catheter. LV to AO pullback pressures were then recorded JR4 Guide catheter was inserted and engaged into the RCA. [employer] [place] Guide wire was advanced to the RCA. Priority One inserted Pass # 1 Priority One inserted Pass # 2 Priority One Removed Emerge 3.50 x 20 Balloon catheter was inserted. Balloon catheter was advanced across lesion in the right coronary, proximal. PTCA balloon inflated at 12 atms for 50 secs. PTCA balloon inflated at 12 atms for 10 secs. PTCA balloon inflated at 6 atms for 5 secs. Angiogram performed post balloon dilatation. PTCA balloon inflated at 12 atms for 13 secs. PTCA balloon inflated at 14 atms for 37 secs. NC Emerge 3.50 x 15 Balloon catheter was inserted. Balloon catheter was advanced across lesion in the right coronary, proximal. PTCA balloon inflated at 20 atms for 16 secs. Angiogram performed post balloon dilatation. PTCA balloon inflated at 12 atms for 6 secs. PTCA balloon inflated at 20 atms for 9 secs. Angiogram performed post balloon dilatation. Resolute [place] 4.0 x 38 Drug Eluting stent was inserted. Drug Eluting stent was advanced across the lesion in the right coronary, proximal. Angiogram performed pre stent deployment. Angiogram performed post stent deployment. The arterial sheath was pulled and a TR Band was applied for hemostasis CORONARY ANGIOGRAPHY DOMINANCE: Right Dominant LEFT HEART ASSESSMENT Left Ventricular Ejection Fraction: by LV Gram 45-50 % Inferior Hypokinesis - Moderate LEFT MAIN: Mild luminal irregularities LEFT ANTERIOR DESCENDING ARTERY: PROX LAD: Mild luminal irregularities MID LAD: 100 % Stenosis. R to L collaterals noted that fill the mid and distal LAD DIAGONAL 1: Proximal - 80 % Stenosis. This vessel appears to be about 1.75-2 mm in diameter CIRCUMFLEX ARTERY: PROX CIRC: 50-60 % Stenosis RIGHT CORONARY ARTERY: PROX RCA: 100 % Stenosis VALVE FINDINGS: No Aortic Valve Stenosis No Mitral Insufficency INTERVENTION INFORMATION LESION SITE: RCA (Proximal) Lesion Complexity: High/C, chronic total occlusion: No, lesion at bifurcation: No, thrombus present: Yes, lesion length: 35 mm, culprit lesion: Yes, Previously treated lesion: No Pre Stenosis: 100 % Pre intervention JESSY flow: 0 PROCEDURE: Thrombectomy, Drug Eluting Stent with pre dilatation. Post Stenosis: 0 % Post intervention JESSY flow: 3 Lesion Devices: Navarro .014 190cm BMW [place] Straight Cordis 6 Fr JR4 100cm Guide Catheter Terumo Priority One Aspiration Catheter Luis Sci EMERGE MR 3.50x20 BALLOON Luis Sci NC EMERGE MR 3.50x15 BALLOON Medtronic Resolute [place] RX BASILIA 4.0x38 COMPLICATIONS No Complications PROCEDURE MEDICATIONS Oxygen: 100 % FiO2 via ventilator. See Resp Record for Settings Atropine 1mg/10ml 1 amp @ 06/09/2023 20:46:48 Heparin 4000 unit(s) IV 06/09/2023 20:53:51 Sodium Bicarbonate 50meq/50ml 1 amp 06/09/2023 20:44:03 IV Bolus: .9 NaCl 2000 ml total 06/09/2023 21:11:06 IV Fluids: .9 NaCl decreased to 75 ml/hr 06/09/2023 21:11:19 SUMMARY OF HEMODYNAMIC DATA Time AIR REST ECG 20:22:08 AO 98/48 (68) SA 20:46:10 LV 161/18, 27 21:29:07 LV 162/10, 19 21:29:17 LV 150/14, 20 21:29:48 LVp 151/17, 19 21:29:54 AOp 149/78 (112) 21:30:01 Signed By Ceferino Marte MD On 06/12/2023 10:40:41 Signed By Ceferino Marte MD On 06/10/2023 12:54:29 Ceferino Marte MD
[2023-06-10] MEDS: Propofol 10MG/Ml 1,000 MG/100 ML Bottle 2.6 MG CONT INF (13:44)
[2023-06-10] MEDS: Acetaminophen 650 MG/20 ML UDC GT (14:13)
[2023-06-10] MEDS: fentaNYL drip 100 ML 5 MCG CONT INF (15:42)
[2023-06-10 17:26] LABS: Bedside Glucose 134 mg/dL (74-106)
[2023-06-10] MEDS: Atorvastatin Calcium 40 MG Tablet PO (22:21)
[2023-06-10 22:40] LABS: Bedside Glucose 91 mg/dL (74-106)
[2023-06-11] VITALS (28 sets, daily range): BP systolic 111–141; BP diastolic 59–109; PULSE 55–89; RESP 10–27; TEMP 37.7–38.1; O2SAT 92–100; BMI 31.8
[2023-06-11 04:40] LABS: Hematocrit 41.8 % (37-47); Mean Corp Hgb Conc 33.5 g/dL (32-36); Mean Corpuscular Hgb 30.1 pg (27.0-32.0); Mean Corpuscular Volume 89.9 fL (81-99); Mean Platelet Vol. 11.4 fl (6.2-12.0); Platelet Count 168 K/mm3 (150-450); RBC Distribution Width CV 13.8 % (11.6-14.6); RBC Distribution Width SD 45.3 fl (35.1-43.9); Red Blood Count 4.65 M/mm3 (4.2-5.4); White Blood Count 11.7 K/mm3 (4.4-11.0)
[2023-06-11 04:53] LABS: Anion Gap 6 (5-15); BUN 10 mg/dL (7-18); BUN/Creat Ratio 14.2 RATIO (10-20); Chloride 112 mmol/L (98-107); Creatinine, Serum 0.71 mg/dL (0.55-1.02); EST Glomerular Filtration Rate 88 mL/min (>60); Est Glom Filt Rate - Afr Amer 107 mL/min (>60); Estimated Creatinine Clearance 51.81 ml/min; Glucose 110 mg/dL (74-106); Potassium 3.8 mmol/L (3.5-5.1); Sodium Level 142 mmol/L (136-145)
--- NOTE | 2023-06-11 06:03 | PN.CC_ITS ---
Assessment & Plan Assessment/Plan (1) Cardiac arrest: (2) STEMI (ST elevation myocardial infarction): QUALIFIERS: Involved coronary artery: unspecified coronary artery Qualified Code(s): I21.3 - ST elevation (STEMI) myocardial infarction of unspecified site PLAN: Plan RECOMMENDATIONS: 1. Proceed with a trial of extubation this morning. 2. Once extubated, wean supplemental oxygen to maintain saturations at or above 90%. 3. Perform bedside swallow evaluation and advance diet accordingly. 4. Await echocardiogram. 5. Encourage incentive spirometer use and mobilize patient as tolerated. 6. Remainder of medical management per cardiology. IMPRESSIONS: 1. Acute hypoxemic respiratory failure status post cardiac arrest The patient presented to the hospital initially with chest pain and subsequently experienced a V-fib cardiac arrest, with eventual ROSC following ACLS. She was taken to the cardiac catheterization lab where intervention was ultimately performed. The patient has done well from a respiratory perspective. She pass ed her spontaneous breathing trial this morning. She is alert and appropriately interactive. Therefore, we will proceed with a trial of extubation. Once extubated, supplemental oxygen will be weaned to maintain saturations at or above 90%. Encourage incentive spirometer use and mobilize patient as tolerated. 2. V-fib cardiac arrest The patient is status post intervention by cardiology. Plan to continue current supportive care with ongoing medical management, per cardiology recommendations. 3. Elevated transaminases Likely secondary to tissue hypoperfusion in the setting of cardiac arrest. Continue to trend liver function profile. TIME: 31 minutes of critical care time, independent of procedures, was spent addressing the patient's acute hypoxemic respiratory failure, status post V-fib cardiac arrest, review of all data and collaboration with the care team. Subjective Subjective The patient was seen and examined at the bedside this morning. Events from the last 24 hours have been reviewed. The patient is currently afebrile, hemodynamically stable and maintaining appropriate oxygen saturations on spontaneous mode mechanical ventilation with an FiO2 requirement of 25%. The patient did well overnight. No significant endotracheal tube secretions were noted by nursing staff. The patient passed her spontaneous breathing trial this morning. She is alert and appropriately interactive. Objective Data Objective Data The patient's most recent lab work, culture data and imaging studies have all been personally reviewed. Vital Signs: Vital Signs Temp Pulse Resp BP Pulse Ox O2 Del Method FiO2 100.6 F H 65 22 H 114/59 L 100 Mechanical Ventilator 06/11/23 04:00 06/11/23 05:06 06/11/23 05:06 06/11/23 04:00 06/11/23 05:06 06/11/23 04:00 06/11/23 04:00 Oxygen Delivery Method Mechanical Ventilator Weight: 198 lb 3.129 oz Body Mass Index (BMI) 31.8 Intake & Output: Intake and Output for Last 24 Hours 06/09/23 06/10/23 06/11/23 23:59 23:59 23:59 Intake Total 53.33 / 57.18 3764.58 / 3774.68 101.75 / 101.75 Output Total 1950 / 1950 1650 / 1650 475 / 475 Balance -1896.67 / -1892.82 2114.58 / 2124.68 -373.25 / -373.25 Lab / Micro Data Attestation: I reviewed the patient's lab results. 06/11/23 04:20 06/11/23 04:20 Labs: Laboratory Results - last 24 hr 06/10/23 06:10: WBC 8.0, RBC 4.18 L, Hgb 12.3, Hct 38.0, MCV 90.9, MCH 29.4, MCHC 32.4, RDW Std Deviation 43.6, RDW Coeff of Vlad 13.2, Plt Count 211, MPV 11.5, Hemoglobin A1c 6.9 H 06/10/23 11:23: POC Glucose 159 H 06/10/23 17:05: POC Glucose 134 H 06/10/23 22:18: POC Glucose 91 06/11/23 04:20: WBC 11.7 H, RBC 4.65, Hgb 14.0, Hct 41.8, MCV 89.9, MCH 30.1, MCHC 33.5, RDW Std Deviation 45.3 H, RDW Coeff of Vlad 13.8, Plt Count 168, MPV 11.4, Sodium 142, Potassium 3.8, Chloride 112 H, Carbon Dioxide 24.0, Anion Gap 6, BUN 10, Creatinine 0.71, Estim Creat Clear Calc 51.81, Est GFR (MDRD) Af Amer 107, Est GFR (MDRD) Non-Af 88, BUN/Creatinine Ratio 14.2, Glucose 110 H, Calcium 8.0 L Micro: Microbiology 06/09/23 23:50 Sputum, Tracheal Aspirate Gram Stain - Final Physical Exam Const Constitutional Narrative: Remains intubated and mechanically ventilated. Tolerating spontaneous mode of mechanical ventilation. HEENT normocephalic and head/scalp atraumatic Mouth: endotracheal tube in place Eyes PERRL, EOMs intact bilaterally and conjunctivae normal Neck supple General: trachea midline Chest inspection of chest normal Resp normal respiratory effort Auscultation: Negative for rales, rhonchi or wheezes Cardio regular rate, S1 normal heart sound and S2 normal heart sound GI normal to inspection, nondistended, normoactive bowel sounds Extremity no clubbing, cyanosis or edema Skin no rashes or lesions noted Neuro moves all extremities and no focal motor deficits Psych cooperative Charges/Coding Procedures Hospitalists Procedures: [id number] Critial Care 1st Hr
[2023-06-11] MEDS: TICAGRELOR 90 MG TABLET PO ×2 (06:18→21:22)
[2023-06-11] MEDS: Famotidine 20 MG Tablet PO ×2 (06:18→21:22)
[2023-06-11 08:52] LABS: AST(SGOT) 105 U/L (15-37); Alanine Aminotransfer ALT/SGPT 178 U/L (13-56); Albumin, Serum 2.9 g/dL (3.2-5.0); Alkaline Phosphatase 56 U/L (45-117); Bilirubin, Direct 0.37 mg/dL (0.00-0.30); Globulin 3.4 g/dL (2.2-4.2); Protein, Total 6.3 g/dL (6.4-8.2)
[2023-06-11] MEDS: Acetaminophen 325 MG Tablet 650 MG PO ×2 (10:34→16:41)
[2023-06-11] MEDS: Aspirin E.C. 81 MG Tablet PO (10:34)
--- NOTE | 2023-06-11 10:47 | PCM.PN.CARD ---
Subjective Subjective Patient seen and eval today at bedside family were at bedside And discussed with the nursing staff She had mild discomfort in the chest pressure-like when she took a deep breath Likely secondary to CPR and chest pressure during the cardiac arrest Objective Data Vital Signs: Vital Signs Temp Pulse Resp BP Pulse Ox O2 Del Method O2 Flow Rate 100.2 F H 70 19 H 123/109 H 98 Nasal Cannula 2 06/11/23 10:00 06/11/23 10:00 06/11/23 10:00 06/11/23 10:00 06/11/23 10:00 06/11/23 10:00 06/11/23 10:00 FiO2 25 06/11/23 06:00 Oxygen Flow Rate (L/min) 2 Oxygen Delivery Method Nasal Cannula Weight: 198 lb 3.129 oz Body Mass Index (BMI) 31.8 Intake & Output: Intake and Output for Last 24 Hours 06/09/23 06/10/23 06/11/23 23:59 23:59 23:59 Intake Total 53.33 / 57.18 3764.58 / 3774.68 331.75 / 331.75 Output Total 1950 / 1950 1650 / 1650 475 / 475 Balance -1896.67 / -1892.82 2114.58 / 2124.68 -143.25 / -143.25 Lab / Micro Data 06/11/23 04:20 06/11/23 04:20 Labs: Laboratory Results - last 24 hr 06/10/23 11:23: POC Glucose 159 H 06/10/23 17:05: POC Glucose 134 H 06/10/23 22:18: POC Glucose 91 06/11/23 04:20: WBC 11.7 H, RBC 4.65, Hgb 14.0, Hct 41.8, MCV 89.9, MCH 30.1, MCHC 33.5, RDW Std Deviation 45.3 H, RDW Coeff of Vlad 13.8, Plt Count 168, MPV 11.4, Sodium 142, Potassium 3.8, Chloride 112 H, Carbon Dioxide 24.0, Anion Gap 6, BUN 10, Creatinine 0.71, Estim Creat Clear Calc 51.81, Est GFR (MDRD) Af Amer 107, Est GFR (MDRD) Non-Af 88, BUN/Creatinine Ratio 14.2, Glucose 110 H, Calcium 8.0 L, Total Bilirubin 1.50 H, Direct Bilirubin 0.37 H, AST 105 H, ALT 178 H, Alkaline Phosphatase 56, Total Protein 6.3 L, Albumin 2.9 L, Globulin 3.4 Micro: Microbiology 06/09/23 23:50 Sputum, Tracheal Aspirate Gram Stain - Final Cardiology Labs/Tests 06/11/23 04:20: WBC 11.7 H, RBC 4.65, Hgb 14.0, Hct 41.8, MCV 89.9, MCH 30.1, MCHC 33.5, Plt Count 168, MPV 11.4, Sodium 142, Potassium 3.8, Chloride 112 H, Carbon Dioxide 24.0, Anion Gap 6, BUN 10, Creatinine 0.71, Est GFR (MDRD) Af Amer 107, Est GFR (MDRD) Non-Af 88, BUN/Creatinine Ratio 14.2, Glucose 110 H, Calcium 8.0 L, Total Bilirubin 1.50 H, Direct Bilirubin 0.37 H Rhythm: EKG: ECHO: Stress Test: Cardiac Cath: PCI: CT Surgery: Holter monitor: EPS: PPM: CXR: Chest CT Scan: Physical Exam Cardio Cardio Narrative: Cardiac rhythm is normal sinus Cardiovascular exam S1-S2 regular Chest exam is clear to auscultation bilateral Assessment & Plan Assessment/Plan (1) Cardiac arrest: (2) STEMI (ST elevation myocardial infarction): QUALIFIERS: Involved coronary artery: unspecified coronary artery Qualified Code(s): I21.3 - ST elevation (STEMI) myocardial infarction of unspecified site PLAN: Plan 68-year-old patient, no significant past medical history. Evidently patient was driving when she developed chest pain she pulled over and she called the EMS Post cardiac arrest/STEMI inferior/patient coded at the emergency department, shocked twice and was given amnio, lidocaine and epi. In route to the ED patient was given heparin, aspirin and Brilinta as well noted from review of the record, patient also coded in the Welfare Worker When she was given epi amnio and chest compression does not require shock in the Welfare Worker. Underwent emergency cardiac catheterization by Dr. 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 The EF in the range of around 1 45?50 percent Also patient had DIRECTOR ONLINE MARKETING LAD Today she is having mild discomfort in the chest which is secondary to the CPR, clock repair technician showed underlying normal sinus rhythm her blood pressure is stable. Cardiac care plan recommendations; 1. We will continue dual antiplatelet therapy with Brilinta and aspirin 2. Patient on high-dose statin 3. Monitor the electrolytes of potassium also monitor the blood glucose as she has elevated blood glucose she is not nondiabetic. Renal function is normal with a creatinine of 1.0 4. We will review the echocardiogram 5. I will keep the patient over the night at CCU due to cardiac arrest event and STEMI With successful PCI of the culprit which is a proximal RCA.
--- NOTE | 2023-06-11 15:12 | PCM.PN.HOSP ---
Reason for Visit Reason for Visit: Diagnoses Hypokalemia (06/09/23) ST elevation (STEMI) myocardial infarction of unspecified site (06/09/23) Cardiac arrest, cause unspecified (06/09/23) Acute respiratory failure with hypoxia (06/09/23) Cardiogenic shock (06/09/23) Hyperglycemia, unspecified (06/09/23) Subjective Subjective No acute events overnight. Patient seen at bedside, friend present. Patient sitting up in bed, resting comfortably, conversing normally, no acute distress. States she has mild to moderate chest pain with deeper breaths due to recent CPR. She had a breathing tube removed this morning and feels significantly more comfortable currently. Reports mild throat discomfort that is tolerable. She has been able to drink some fluids since tube removal without issue. She denies any fevers or chills. Denies any lower extremity swelling. Denies any dizziness or lightheadedness. Denies any shortness of breath. No other acute concerns. Objective Data Objective Data Vital Signs: Vital Signs Temp Pulse Resp BP Pulse Ox O2 Del Method O2 Flow Rate 100 F H 58 L 15 126/64 H 97 Nasal Cannula 2 06/11/23 15:00 06/11/23 15:00 06/11/23 15:00 06/11/23 15:00 06/11/23 15:00 06/11/23 15:00 06/11/23 15:00 FiO2 25 06/11/23 06:00 Oxygen Flow Rate (L/min) 2 Oxygen Delivery Method Nasal Cannula Weight: 89.9 kg Body Mass Index (BMI) 31.8 Intake & Output: Intake and Output for Last 24 Hours 06/09/23 06/10/23 06/11/23 23:59 23:59 23:59 Intake Total 53.33 / 57.18 3764.58 / 3774.68 451.75 / 451.75 Output Total 1950 / 1950 1650 / 1650 675 / 675 Balance -1896.67 / -1892.82 2114.58 / 2124.68 -223.25 / -223.25 Lab / Micro Data 06/11/23 04:20 06/11/23 04:20 Labs: Laboratory Results - last 24 hr 06/10/23 17:05: POC Glucose 134 H 06/10/23 22:18: POC Glucose 91 06/11/23 04:20: WBC 11.7 H, RBC 4.65, Hgb 14.0, Hct 41.8, MCV 89.9, MCH 30.1, MCHC 33.5, RDW Std Deviation 45.3 H, RDW Coeff of Vlad 13.8, Plt Count 168, MPV 11.4, Sodium 142, Potassium 3.8, Chloride 112 H, Carbon Dioxide 24.0, Anion Gap 6, BUN 10, Creatinine 0.71, Estim Creat Clear Calc 51.81, Est GFR (MDRD) Af Amer 107, Est GFR (MDRD) Non-Af 88, BUN/Creatinine Ratio 14.2, Glucose 110 H, Calcium 8.0 L, Total Bilirubin 1.50 H, Direct Bilirubin 0.37 H, AST 105 H, ALT 178 H, Alkaline Phosphatase 56, Total Protein 6.3 L, Albumin 2.9 L, Globulin 3.4 Micro: Microbiology 06/09/23 23:50 Sputum, Tracheal Aspirate Gram Stain - Final Physical Exam Const alert, oriented x3, no apparent distress and well nourished Constitutional Narrative: Pleasant female, obese, sitting comfortably in bed, conversing normally, no acute distress. General Appearance: cooperative and comfortable HEENT normocephalic, head/scalp atraumatic, hearing grossly normal bilaterally, nasal mucous membranes and turbinates normal and moist oral mucous membranes Eyes PERRL, EOMs intact bilaterally and conjunctivae normal Neck full ROM, no lymphadenopathy and supple Lymph Lymphatic: no lymphadenopathy noted Chest Chest Narrative: Mild bruising noted on chest at CPR site. Resp normal respiratory effort, normal air movement, no use of accessory muscles and clear to auscultation bilaterally Resp Narrative: Satting well on room air, no increased work of breathing noted. Cardio regular rate, regular rhythm, no murmurs and peripheral pulses 2+ throughout GI normal to inspection, nondistended, normoactive bowel sounds, soft to palpation, non-tender and non-distended Back/Spine normal ROM Extremity normal to inspection, full ROM and no pedal edema Skin no rashes or lesions noted Psych mental status grossly normal Assessment & Plan Assessment/Plan (1) STEMI (ST elevation myocardial infarction): QUALIFIERS: Involved coronary artery: unspecified coronary artery Qualified Code(s): I21.3 - ST elevation (STEMI) myocardial infarction of unspecified site PLAN: Plan Patient is a 68-year-old female with no significant past medical history who presented to [facility] on 06/09/2023 with chest pain. 1. STEMI ST elevations noted in leads II, III and aVF on admission. Had V-fib arrest in the ED with defibrillation x2 and return of normal sinus rhythm. Taken emergently to Accountant Controller, s/p PCI with BASILIA x1 to RCA. Estimated EF of 45 to 50% during cath. Patient now extubated and stable on room air as noted below. ?Cardiology following. TTE pending. Continue aspirin, Brilinta, statin. Monitor telemetry. We will monitor in ICU for 1 more night, if remains stable likely okay for either transfer to floor or possibly discharge home. 2. Cardiac arrest Secondary to STEMI as noted above. V-fib arrest in ED on arrival. Received epinephrine with subsequent defibrillation and return to sinus rhythm. Started on amiodarone drip. Subsequently developed torsade the point, then V-fib arrest again requiring defibrillation again with conversion to sinus rhythm. Also received boluses of magnesium and lidocaine. ?Cardiology following as above. Amiodarone drip discontinued on 06/10, patient stable in sinus rhythm. Monitor telemetry, maintain potassium greater than 4 and mag greater than 2. 3. Acute hypoxic respiratory failure, resolved ? Intubated during cardiac arrest. Successfully extubated to nasal cannula on 06/11. Currently satting well on room air. 4. Type 2 diabetes ? New diagnosis on this admission. Hemoglobin A1c 6.9% on admission. Continue sliding scale insulin while inpatient. Will discuss discharging on metformin with close outpatient follow-up. DVT prophylaxis: SCDs CODE STATUS: Full code, verified Expected disposition: Home, 1 to 2 days Total clinical time spent by myself addressing the patient's medical issues, reviewing all the data, and collaborating with patient's care team: 35 minutes. Charges/Coding Visit Charges Inpatient E&M: 21283 Subs Hosp L2
[2023-06-11] MEDS: Atorvastatin Calcium 40 MG Tablet PO (21:22)
[2023-06-12] VITALS (14 sets, daily range): BP systolic 113–188; BP diastolic 61–98; PULSE 59–69; RESP 17–30; TEMP 36.7–37.9; O2SAT 90–97; BMI 31.2
[2023-06-12] MEDS: Acetaminophen 325 MG Tablet 650 MG PO ×4 (01:00→20:44)
--- NOTE | 2023-06-12 07:07 | PCM.PN.INT ---
Assessment & Plan Assessment/Plan (1) Cardiac arrest: (2) STEMI (ST elevation myocardial infarction): QUALIFIERS: Involved coronary artery: unspecified coronary artery Qualified Code(s): I21.3 - ST elevation (STEMI) myocardial infarction of unspecified site PLAN: Plan RECOMMENDATIONS: 1. Wean supplemental oxygen to maintain saturations at or above 90%. 2. Encourage incentive spirometer use and mobilize patient as tolerated. 3. Await results of echocardiogram. 4. Remainder of medical management per cardiology. 5. Initiate ceftriaxone to address Streptococcus pneumonia on sputum culture. Plan to treat for 7 days. 6. The patient is medically stable for transfer out of the intensive care unit. We will sign off from a critical care perspective. IMPRESSIONS: 1. Acute hypoxemic respiratory failure status post cardiac arrest The patient presented to the hospital initially with chest pain and subsequently experienced a V-fib cardiac arrest, with eventual ROSC following ACLS. She was taken to the cardiac catheterization lab where intervention was ultimately performed. The patient has done well from a respiratory perspective and was able to be successfully extubated on June 11. Plan to continue to wean supplemental oxygen to maintain saturations at or above 90%. Encourage incentive spirometer use and mobilize patient as tolerated. The patient sputum culture was positive for Streptococcus pneumonia. Therefore, will initiate therapy with ceftriaxone, with a goal to complete 7 days of therapy. 2. V-fib cardiac arrest The patient is status post intervention by cardiology. Plan to continue current supportive care with ongoing medical management, per cardiology recommendations. 3. Elevated transaminases Likely secondary to tissue hypoperfusion in the setting of cardiac arrest. This note was generated with [employer] dictation software. It may contain incorrect words, spelling, and punctuation that were not noted in checking the note before signing. Subjective Subjective The patient was seen and examined at the bedside this morning. Events from the last 24 hours have been reviewed. The patient currently has a low-grade fever but remains otherwise hemodynamically stable on 2 L/min via nasal cannula. She is documented to be overall net -1.6 L for the hospitalization. The patient does continue to have some residual chest discomfort. Objective Data Objective Data The patient's most recent lab work, culture data and imaging studies have all been personally reviewed. Vital Signs: Vital Signs Temp Pulse Resp BP Pulse Ox O2 Del Method O2 Flow Rate 99.4 F H 60 28 H 132/73 H 94 Nasal Cannula 2 06/12/23 06:00 06/12/23 06:00 06/12/23 06:00 06/12/23 06:00 06/12/23 06:00 06/12/23 06:00 06/12/23 06:00 FiO2 25 06/11/23 06:00 Oxygen Flow Rate (L/min) 2 Oxygen Delivery Method Nasal Cannula Weight: 194 lb 7.163 oz Body Mass Index (BMI) 31.2 Intake & Output: Intake and Output for Last 24 Hours 06/10/23 06/11/23 06/12/23 23:59 23:59 23:59 Intake Total 3764.58 / 3774.68 731.75 / 731.75 120 / 120 Output Total 1650 / 1650 1875 / 1975 800 / 800 Balance 2114.58 / 2124.68 -1143.25 / -1243.25 -680 / -680 Lab / Micro Data Attestation: I reviewed the patient's lab results. 06/11/23 04:20 06/11/23 04:20 Labs: Laboratory Results - last 24 hr 06/11/23 04:20: Total Bilirubin 1.50 H, Direct Bilirubin 0.37 H, AST 105 H, ALT 178 H, Alkaline Phosphatase 56, Total Protein 6.3 L, Albumin 2.9 L, Globulin 3.4 Micro: Microbiology 06/09/23 23:50 Sputum, Tracheal Aspirate Gram Stain - Final Radiography Diagnostic Testing: Radiology Impression Echocardiogram 06/10/23 07:06 Interpretation Summary The estimated ejection fraction is 50-55 %. No significant valvular abnormality noted No prior echocardiogram to compare. Ordering Physician: Jarrett Escobar Referring Physician: Kelsey Marte Performed By: Yolanda Sol, RDCS, RVT Physical Exam Const alert and no apparent distress General Appearance: cooperative HEENT normocephalic, head/scalp atraumatic and moist oral mucous membranes Eyes PERRL, EOMs intact bilaterally and conjunctivae normal Neck supple General: trachea midline Chest inspection of chest normal Resp normal respiratory effort Auscultation: Negative for rales, rhonchi or wheezes Cardio regular rate, S1 normal heart sound and S2 normal heart sound GI normal to inspection, nondistended, normoactive bowel sounds Extremity no clubbing, cyanosis or edema Skin no rashes or lesions noted Neuro CN's II-XII intact bilaterally, moves all extremities and no focal motor deficits Psych cooperative and affect normal Charges/Coding Visit Charges Inpatient E&M: 63546 Subs Hosp L3
[2023-06-12] MEDS: TICAGRELOR 90 MG TABLET PO ×2 (09:25→20:44)
[2023-06-12] MEDS: Famotidine 20 MG Tablet PO ×2 (09:26→20:44)
[2023-06-12] MEDS: Aspirin E.C. 81 MG Tablet PO (09:26)
--- NOTE | 2023-06-12 10:28 | CRPHASE1 ---
Patient Communication Patient Information PHII Cardiac Rehab Discussed with Patient:: Yes Guide to Cardiac Rehab Given to Patient:: Yes Cardiac Rehab Facility Choice List Given to Patient:: Yes Communication to Cardiac Rehab Choice Program [facility] CR PHII:: Communication Given to CR Home Appliance Washing Machine Mechanic:: Kelsey Marte Phase II Cardiac Rehab:: Yes Sessions:: 36 sessions - 3 days/wk, 12 weeks Cardiac Rehabilitation Info Program Information Cardiac Rehabilitation Program Information: Cardiac Rehab The cardiac rehab team at [facility] consists of highly skilled exercise physiologists, nurses, respiratory therapists and physicians working together with you. Our purpose is to help you have a full recovery and achieve the goals you set for yourself. Over the years many of our patients have returned to activities they assumed they would never do again! We can help restore your confidence and motivation to make lifestyle changes that can have a significant impact on your health and quality of life! We can help answer questions and concerns you may have about exercise, lifestyle, medications, diet, stress and anxiety which are common following a hospitalization. WE monitor ECG and vital signs during exercise and discuss your progress with you and report to your physician(s). Cardiac Rehab is proven to help reduce readmissions, improve functional capacity and lower recurrence of problems with your heart. Our Cardiac Rehab program is Certified by the [place] [employer] Pulmonary [employer] (AACVPR) and Accredited by the [place] through our [facility]. You can contact us at . We invite you to call us with your questions or to get started in our program. If you have other questions or concerns be sure to ask your physician/provider during your follow-up visit. WE look forward to seeing you!
--- NOTE | 2023-06-12 10:28 | CRPH1.INSTRU ---
General Education Discussed with Patient CAD and cardiac anatomy and function:: Patient communicates acknowledgment Explanation of diagnoses and procedures:: Patient communicates acknowledgment Sign/Symptoms of OR:: Patient communicates acknowledgment Antiplatelet therapy: Patient communicates acknowledgment Proper use of NTG-SL: Patient communicates acknowledgment Emergency procedures and activation of EMS: Patient communicates acknowledgment Compliance of all prescribed medications: Patient communicates acknowledgment Smoking Risk Factors Patient Nicotine/Smoking Risk Factors Are:: Never smoked Dyslipidemia Risk Factors Patient Dyslipidemia Risk Factors Are:: Total Cholesterol, Triglycerides, HDL and LDL Recommendations Recommendations Include:: Lipid profile provided, Reviewed NCEP/ATP guidelines and Therapeutic Lifestyle Change dietary guidelines Response Code Dyslipidemia Response Code:: Patient communicates acknowledgment Overweight/Obesity Risk Factors Patient Overweight/Obesity Risk Factors Are:: Obesity - > or = 30 Recommendations Recommendations Include:: Weight loss of 5-10%, Reduced calorie diet and Exercise 5-7 times/week Response Code Overweight/Obesity:: Patient communicates acknowledgment Hypertension Recommendations Recommendations Include:: Maintain BP <130/85, DASH dietary guidelines, Decrease/maintain normal body weight and Moderation of ETOH Response Code Hypertension:: Patient communicates acknowledgment Diabetes Risk Factors Patient Diabetes Risk Factors Are:: No documented hx of diabetes Metabolic Syndrome Risk Factors Patient Metabolic Syndrome Risk Factors Are [3 of 5]:: Fasting blood sugar > 100 mg/dL, Waist circumference > 35 [female] or 40 [male], High triglyceride >150 and Hypertension Recommendations Recommendations Include:: Reinforce compliance to risk factor modifications and Encouraged follow-up with Primary Care Physician Response Code Metabolic Syndrome Response Code:: Patient communicates acknowledgment Sedentary Risk Factors Patient Sedentary Risk Factors Are:: Lack of regular exercise Recommendations Recommendations Include:: Aerobic exercise 5-7 times/week for 20-30 minutes continuously, Benefits of regular exercise, Discussed home walking program and Monitored Outpatient Cardiac Rehab Response Code Sedentary Response Code:: Patient communicates acknowledgment Stress Recommendations Recommendations Include:: Identification of stressors, and assessment of coping skills and Stress management techniques Response Code Stress Response Code:: Patient communicates acknowledgment
--- NOTE | 2023-06-12 11:47 | CASEMGMT ---
MARLON RAMIREZ Assessment: Face to Face with pt for initial transition planning/care coordination assessment. RN JAMES introduced self and role at [facility], pt voices understanding and consents to assessment. Pt is A/O x4 and answers all questions appropriately at this time. Pt sitting up in chair in no distress. Care providers, pharmacy, and demographics verified/updated. Admitting Dx: STEMI PCP:Pt denies. Provided pt with a local healthcare directory list. Specialists:Pt denies Preferred Pharmacy: [facility] Retail Insurance: [address] Prescription Benefit: yes LNOK: Concepcion Tiwari, karen; Payal Teixeira, sister Living Arrangements: Pt lives alone in a two story home with no steps to enter. Pt reports she was I in ADL's and denies concerns at home. She states her friend is coming in July to live with her. Transportation: Pt drives self and denies concerns with transportation. DME/HHC/SNF: Pt denies having any DME in the home, previous HHC or SNF stays. Pt states no concerns with going home at time of dc. Discussed anticoag savings card and that this should be applied when she picks up her medications. Pt states no further concerns/needs. CM to follow. Advised pt to ask CM if any further question/concerns/needs arise, voices understanding. Pt Goal: Home Plan: Home
[2023-06-12] MEDS: Ceftriaxone 1 GM/50 ML BAG IV (12:03)
[2023-06-12] MEDS: 0.9% Saline Lock 10 ML Syringe IV (12:09)
--- NOTE | 2023-06-12 13:02 | PCM.PN.CARD ---
Documented by User: CHRISTIANO Zamudio 06/12/23 14:04 Subjective Subjective Pt seen and examined. Pt does complain of chest soreness not worsening. She does admit to some increased SOB with a cough today. Objective Data Vital Signs: Vital Signs Temp Pulse Resp BP Pulse Ox O2 Del Method O2 Flow Rate 99.5 F H 59 L 18 135/70 H 92 Room Air 2 06/12/23 08:00 06/12/23 08:00 06/12/23 08:00 06/12/23 08:00 06/12/23 11:01 06/12/23 11:01 06/12/23 08:00 FiO2 25 06/11/23 06:00 Oxygen Flow Rate (L/min) 2 Oxygen Delivery Method Room Air Weight: 194 lb 7.163 oz Body Mass Index (BMI) 31.2 Intake & Output: Intake and Output for Last 24 Hours 06/10/23 06/11/23 06/12/23 23:59 23:59 23:59 Intake Total 3764.58 / 3774.68 731.75 / 731.75 170 / 170 Output Total 1650 / 1650 1875 / 1975 1025 / 1025 Balance 2114.58 / 2124.68 -1143.25 / -1243.25 -855 / -855 Lab / Micro Data 06/11/23 04:20 06/11/23 04:20 Micro: Microbiology 06/09/23 23:50 Sputum, Tracheal Aspirate Gram Stain - Final 06/09/23 23:50 Sputum, Tracheal Aspirate Respiratory Culture - Preliminary Streptococcus pneumoniae Cardiology Labs/Tests Rhythm: NSR Radiography Diagnostic Testing: Radiology Impression Echocardiogram 06/10/23 07:06 Interpretation Summary The estimated ejection fraction is 50-55 %. No significant valvular abnormality noted No prior echocardiogram to compare. Ordering Physician: Jarrett Escobar Referring Physician: Kelsey Marte Performed By: Yolanda Sol, JOHN, RVT Physical Exam Const alert and no apparent distress General Appearance: cooperative HEENT normocephalic, head/scalp atraumatic and moist oral mucous membranes Eyes PERRL, EOMs intact bilaterally and conjunctivae normal Neck supple General: trachea midline Chest inspection of chest normal Resp normal respiratory effort Auscultation: rales bilateral lower Cardio regular rate, S1 normal heart sound and S2 normal heart sound GI normal to inspection, nondistended, normoactive bowel sounds Extremity no clubbing, cyanosis or edema Skin no rashes or lesions noted Neuro CN's II-XII intact bilaterally, moves all extremities and no focal motor deficits Psych cooperative and affect normal Assessment & Plan Assessment/Plan (1) Cardiac arrest: (2) STEMI (ST elevation myocardial infarction): QUALIFIERS: Involved coronary artery: unspecified coronary artery Qualified Code(s): I21.3 - ST elevation (STEMI) myocardial infarction of unspecified site (3) Multi-vessel coronary artery stenosis: (4) Stented coronary artery: PLAN: Plan Pt underwent thrombectomy and stenting to her RCA. Of note she does have a OIL PIT ATTENDANT of her LAD with collaterals. EF is preserved. Feel that her chest soreness is likely from her compression and her Left lower rib pain could be related to pneumonia. Recommend that pt be Brilinta. She will need to be on this for at lest one year post STEMI. She is on ASA and Atorvastatin. Will maximize medications by starting low dose BB and Lisinopril. Documented by User: Dr. Aneudy Cho MD 06/12/23 16:30 Lab / Micro Data 06/11/23 04:20 06/11/23 04:20 Assessment & Plan Assessment/Plan (1) Cardiac arrest: (2) STEMI (ST elevation myocardial infarction): QUALIFIERS: Involved coronary artery: unspecified coronary artery Qualified Code(s): I21.3 - ST elevation (STEMI) myocardial infarction of unspecified site (3) Multi-vessel coronary artery stenosis: (4) Stented coronary artery: PLAN: Plan Pt underwent thrombectomy and stenting to her RCA. Of note she does have a OIL PIT ATTENDANT of her LAD with collaterals. EF is preserved. Feel that her chest soreness is likely from her compression and her Left lower rib pain could be related to pneumonia. Recommend that pt be Brilinta. She will need to be on this for at lest one year post STEMI. She is on ASA and Atorvastatin. Will maximize medications by starting low dose BB and Lisinopril. I independently examined this patient today in CCU along with the nursing staff I reviewed all the evaluation which included the EKG imaging studies, current lab results as well as current cardiac medication This patient is post cardiac arrest with OIL PIT ATTENDANT of the LAD which is filled by collaterals from the RCA I reviewed the echocardiogram which showed LV function is preserved Patient underwent successful PCI of the culprit vessel which is occluded proximal RCA by Dr. Marte with excellent result Still she had some discomfort in the chest which is Reichley related to the CPR, no significant change in the EKG From cardiac standpoint we will continue dual antiplatelet therapy with Brilinta and low-dose aspirin As well as the rest of the cardiac medication including low-dose lisinopril and beta-deborah to continue on DAPT for at least 1 year and aspirin indefinitely Patient also will be scheduled for cardiac rehab program here at [facility] and to follow-up with the cardiology team for continuation of cardiac care I concur with cardiac care plan as per midlevel note and documentation Aneudy Cho MD,FACC,[facility]
--- NOTE | 2023-06-12 15:32 | PN.HOSP_ITS ---
Reason for Visit Reason for Visit: Diagnoses Hypokalemia (06/09/23) ST elevation (STEMI) myocardial infarction of unspecified site (06/09/23) Cardiac arrest, cause unspecified (06/09/23) Acute respiratory failure with hypoxia (06/09/23) Cardiogenic shock (06/09/23) Hyperglycemia, unspecified (06/09/23) Subjective Subjective No acute events overnight. Patient seen at bedside, multiple family members present. Patient sitting comfortably in bed, conversing normally, in no acute distress. States her musculoskeletal chest pain after CPR is mildly improved today. She reports that her left-sided rib pain is the spot of most pain, but is tolerable with Tylenol. She denies any lightheadedness or dizziness. She has been walking around the room with nursing assistance without issue. She denies any shortness of breath with exertion. She denies any feelings of volume overload. Denies any fevers or chills. No other acute concerns. Objective Data Objective Data Vital Signs: Vital Signs Temp Pulse Resp BP Pulse Ox O2 Del Method O2 Flow Rate 98.6 F 64 19 H 150/87 H 94 Room Air 2 06/12/23 14:00 06/12/23 14:00 06/12/23 14:00 06/12/23 14:00 06/12/23 14:00 06/12/23 14:46 06/12/23 08:00 FiO2 25 06/11/23 06:00 Oxygen Flow Rate (L/min) 2 Oxygen Delivery Method Room Air Weight: 88.2 kg Body Mass Index (BMI) 31.2 Intake & Output: Intake and Output for Last 24 Hours 06/10/23 06/11/23 06/12/23 23:59 23:59 23:59 Intake Total 3764.58 / 3774.68 731.75 / 731.75 193.75 / 193.75 Output Total 1650 / 1650 1874 / 1974 1625 / 1625 Balance 2114.58 / 2124.68 -1143.25 / -1243.25 -1431.25 / -1431.25 Lab / Micro Data 06/11/23 04:20 06/11/23 04:20 Micro: Microbiology 06/09/23 23:50 Sputum, Tracheal Aspirate Gram Stain - Final 06/09/23 23:50 Sputum, Tracheal Aspirate Respiratory Culture - Preliminary Streptococcus pneumoniae Radiography Diagnostic Testing: Radiology Impression Echocardiogram 06/10/23 07:06 Interpretation Summary The estimated ejection fraction is 50-55 %. No significant valvular abnormality noted No prior echocardiogram to compare. Ordering Physician: Jarrett Escobar Referring Physician: Kelsey Marte Performed By: Yolanda Sol, JOHN, RVT Physical Exam Const alert, oriented x3, no apparent distress and well nourished Constitutional Narrative: Pleasant female, obese, sitting comfortably in bed, conversing normally, no acute distress. General Appearance: cooperative and comfortable HEENT normocephalic, head/scalp atraumatic, hearing grossly normal bilaterally, nasal mucous membranes and turbinates normal and moist oral mucous membranes Eyes PERRL, EOMs intact bilaterally and conjunctivae normal Neck full ROM, no lymphadenopathy and supple Lymph Lymphatic: no lymphadenopathy noted Chest Chest Narrative: Mild bruising noted on chest at CPR site. Resp normal respiratory effort, normal air movement, no use of accessory muscles and clear to auscultation bilaterally Resp Narrative: Satting well on room air, no increased work of breathing noted. Cardio regular rate, regular rhythm, no murmurs and peripheral pulses 2+ throughout GI normal to inspection, nondistended, normoactive bowel sounds, soft to palpation, non-tender and non-distended Back/Spine normal ROM Extremity normal to inspection, full ROM and no pedal edema Skin no rashes or lesions noted Psych mental status grossly normal Assessment & Plan Assessment/Plan (1) STEMI (ST elevation myocardial infarction): QUALIFIERS: Involved coronary artery: unspecified coronary artery Qualified Code(s): I21.3 - ST elevation (STEMI) myocardial infarction of unspecified site PLAN: Plan Patient is a 68-year-old female with no significant past medical history who presented to [facility] on 06/09/2023 with chest pain. 1. STEMI ST elevations noted in leads II, III and aVF on admission. Had V-fib arrest in the ED with defibrillation x2 and return of normal sinus rhythm. Taken emergently to [facility], s/p PCI with BASILIA x1 to RCA. Estimated EF of 45 to 50% during cath. Patient now extubated and stable on room air as noted below. TTE 06/11 showed an EF of 55%, no regional wall motion abnormalities, no valvular changes. ?Cardiology following. Continue aspirin, Brilinta, statin. Starting on low- dose beta-deborah and SHERIF inhibitor today. Monitor telemetry. Stable for transfer out of ICU, likely home tomorrow if remains stable. 2. Cardiac arrest Secondary to STEMI as noted above. V-fib arrest in ED on arrival. Received epinephrine with subsequent defibrillation and return to sinus rhythm. Started on amiodarone drip. Subsequently developed torsade the point, then V-fib arrest again requiring defibrillation again with conversion to sinus rhythm. Also received boluses of magnesium and lidocaine. ?Cardiology following as above. Amiodarone drip discontinued on 06/10, patient stable in sinus rhythm. Monitor telemetry, maintain potassium greater than 4 and mag greater than 2. 3. Acute hypoxic respiratory failure, resolved ? Intubated during cardiac arrest. Successfully extubated to nasal cannula on 06/11. Currently satting well on room air. 4. Type 2 diabetes ? New diagnosis on this admission. Hemoglobin A1c 6.9% on admission. Continue sliding scale insulin while inpatient. Will discuss discharging on metformin with close outpatient follow-up. DVT prophylaxis: SCDs CODE STATUS: Full code, verified Expected disposition: Home, 1 to 2 days Total clinical time spent by myself addressing the patient's medical issues, reviewing all the data, and collaborating with patient's care team: 35 minutes. Charges/Coding Visit Charges Inpatient E&M: 58681 Subs Hosp L2
[2023-06-12] MEDS: Atorvastatin Calcium 40 MG Tablet PO (20:44)
[2023-06-12] MEDS: oxyCODONE 5 MG Tablet PO (20:54)
[2023-06-12] MEDS: guaiFENesin 10 ML UDC (200MG/10ML) PO (22:52)
[2023-06-13] VITALS (7 sets, daily range): BP systolic 143–185; BP diastolic 80–114; PULSE 64–69; RESP 16–18; TEMP 36.4–36.7; O2SAT 93–97; BMI 31.4
[2023-06-13] MEDS: oxyCODONE 5 MG Tablet PO ×2 (06:07→11:47)
[2023-06-13] MEDS: Acetaminophen 325 MG Tablet 650 MG PO ×2 (06:07→12:10)
[2023-06-13] MEDS: Aspirin E.C. 81 MG Tablet PO (08:36)
[2023-06-13] MEDS: TICAGRELOR 90 MG TABLET PO (10:49)
[2023-06-13] MEDS: Famotidine 20 MG Tablet PO (10:49)
[2023-06-13] MEDS: Ceftriaxone 1 GM/50 ML BAG IV (11:29)
--- NOTE | 2023-06-13 12:56 | PN.CARD_ITS ---
Subjective Subjective Pt seen and examined. Pt does complain of chest soreness not worsening. Objective Data Vital Signs: Vital Signs Temp Pulse Resp BP Pulse Ox O2 Del Method O2 Flow Rate 98.0 F 68 16 158/86 H 96 Room Air 3 06/13/23 07:40 06/13/23 07:40 06/13/23 07:40 06/13/23 07:40 06/13/23 07:50 06/13/23 08:36 06/13/23 04:53 FiO2 25 06/11/23 06:00 Oxygen Flow Rate (L/min) 3 Oxygen Delivery Method Room Air Weight: 195 lb 1.745 oz Body Mass Index (BMI) 31.4 Intake & Output: Intake and Output for Last 24 Hours 06/11/23 06/12/23 06/13/23 23:59 23:59 23:59 Intake Total 731.75 / 731.75 193.75 / 193.75 Output Total 5 / 1975 1625 / 1625 Balance -1143.25 / -1243.25 -1431.25 / -1431.25 Lab / Micro Data 06/11/23 04:20 06/11/23 04:20 Micro: Microbiology 06/09/23 23:50 Sputum, Tracheal Aspirate Gram Stain - Final 06/09/23 23:50 Sputum, Tracheal Aspirate Respiratory Culture - Final Streptococcus pneumoniae Cardiology Labs/Tests Rhythm:SR Physical Exam Const alert and no apparent distress General Appearance: cooperative HEENT normocephalic, head/scalp atraumatic and moist oral mucous membranes Eyes PERRL, EOMs intact bilaterally and conjunctivae normal Neck supple General: trachea midline Chest inspection of chest normal Resp normal respiratory effort Auscultation: rales bilateral lower Cardio regular rate, S1 normal heart sound and S2 normal heart sound GI normal to inspection, nondistended, normoactive bowel sounds Extremity no clubbing, cyanosis or edema Skin no rashes or lesions noted Neuro CN's II-XII intact bilaterally, moves all extremities and no focal motor deficits Psych cooperative and affect normal Assessment & Plan Assessment/Plan (1) Cardiac arrest: (2) STEMI (ST elevation myocardial infarction): QUALIFIERS: Involved coronary artery: unspecified coronary artery Qualified Code(s): I21.3 - ST elevation (STEMI) myocardial infarction of unspecified site (3) Multi-vessel coronary artery stenosis: (4) Stented coronary artery: PLAN: Plan * Pt underwent thrombectomy and stenting to her RCA. Of note she does have a EP TECH of her LAD with collaterals. EF is preserved. Feel that her chest soreness is likely from her compression and her Left lower rib pain could be related to pneumonia. * Recommend that pt be Brilinta for at least one year post STEMI. She is on ASA and Atorvastatin. * Will maximize medications by starting low dose BB and Lisinopril. * Will f/u with pt on OP basis. * Will refer to cardiac rehab. I independently examined this patient today in CCU along with the nursing staff I reviewed all the evaluation which included the EKG imaging studies, current lab results as well as current cardiac medication This patient is post cardiac arrest with EP TECH of the LAD which is filled by collaterals from the RCA I reviewed the echocardiogram which showed LV function is preserved Patient underwent successful PCI of the culprit vessel which is occluded proximal RCA by Dr. Marte with excellent result Still she had some discomfort in the chest which is Reichley related to the CPR, no significant change in the EKG From cardiac standpoint we will continue dual antiplatelet therapy with Brilinta and low-dose aspirin As well as the rest of the cardiac medication including low-dose lisinopril and beta-deborah to continue on DAPT for at least 1 year and aspirin indefinitely Patient also will be scheduled for cardiac rehab program here at [facility] and to follow-up with the cardiology team for continuation of cardiac care I concur with cardiac care plan as per midlevel note and documentation Aneudy Cho MD,FACC,[facility] Charges/Coding Visit Charges Inpatient E&M: 62130 [facility] Hosp L3
--- NOTE | 2023-06-13 13:45 | PCM.DC ---
Discharge Instructions Diet Discharge Diet: No restrictions Activity Discharge Activity: Return to Normal Activity Weight Bearing Status: Full weight bearing Follow Up Care Test Results: Test results from this visit will be discussed in further detail at your follow-up appointment, if applicable. Pending Tests Upon Discharge: None Discharge Plan Admission Admit Date/Time: 06/09/23 20:49 Primary Reason for Your Visit: STEMI Attending Provider: Caesar Carpio Primary Care Provider: Care Physician,Sharmaine Primary Consulting Providers: Gómez Leal; Bob Lewis; Kelsey Marte; Kam Vu; Jarrett Escobar; Shashi George; Pawel Hernandez; Varsha Lentz ASSOCIATE EDITOR Instructions Additional Instructions / Restrictions: Please see your medication list as noted below for reference on all medications that you should be taking at home going forward. Please take cefdinir twice daily for the next 5 days to complete a 7-day course of antibiotics for your strep pneumonia. The cardiology office will call to you for a follow-up appointment in the near future. The cardiac rehab office will also call to schedule you for a follow-up appointment. Discharge Orders/Prescriptions Prescriptions: New atorvastatin 40 mg Tablet 40 mg PO QHS 90 Days Qty: 90 0RF aspirin 81 mg Tablet,Delayed Release (Dr/Ec) 81 mg PO DAILY@0800 90 Days Qty: 90 0RF famotidine 20 mg Tablet 20 mg PO BID 90 Days Qty: 180 0RF lisinopril 10 mg Tablet 10 mg PO DAILY 90 Days Qty: 90 0RF Brilinta 90 mg Tablet 90 mg PO BID 90 Days Qty: 180 3RF cefdinir 300 mg capsule 300 mg PO BID 5 Days Qty: 10 0RF Referrals / Follow Up: Care Physician,No Primary [Primary Care Provider] - Charleen Murguia ASSOCIATE EDITOR, ASSOCIATE EDITOR-C [Non-Staff -Ordering Privileges] - 07/04/23 2:00 pm Disposition Disposition (needs filled in before D/C Order can be placed): Home, Self Care
--- NOTE | 2023-06-13 13:53 | PCM.DC.SUM ---
Providers Date of Admission: 06/09/23 Date of Discharge: 06/13/23 Primary Care Physician: Sharmaine Primary Care Phys Consultations 06/09/23 22:40 Consult: Cardiology Routine Consulting Provider: Kelsey Marte Reason for Consult: stemi EMERGENT Consult: No Notified: Yes Date Notified: 06/09/23 Time Notified: 21:11 Method of Notification: ED Physician Initiated Consult: Elementary Substitute Teacher / Pulmonary Medicine Routine Consulting Provider: Pulmonary Medicine richard Delmont Reason for Consult: Vent management EMERGENT Consult: No MD Notified: Yes Date Notified: 06/09/23 Time Notified: 21:09 Method of Notification: Text Reason For Visit: STEMI Diagnosis Discharge Diagnosis (1) Cardiac arrest: Status: Acute Code(s): I46.9 - Cardiac arrest, cause unspecified (2) STEMI (ST elevation myocardial infarction): Status: Acute Code(s): I21.3 - ST elevation (STEMI) myocardial infarction of unspecified site Qualifiers: Involved coronary artery: unspecified coronary artery Qualified Code(s): I21.3 - ST elevation (STEMI) myocardial infarction of unspecified site (3) Multi-vessel coronary artery stenosis: Status: Chronic Code(s): I25.10 - Atherosclerotic heart disease of [place] coronary artery without angina pectoris (4) Stented coronary artery: Status: Acute Code(s): Z95.5 - Presence of coronary angioplasty implant and graft Medications at Discharge Home Medications aspirin 81 mg tablet,delayed release 81 mg PO DAILY@0800 90 days #90 tabs 06/13/23 atorvastatin 40 mg tablet 40 mg PO QHS 90 days #90 tabs 06/13/23 cefdinir 300 mg capsule 300 mg PO BID 5 days #10 caps 06/13/23 famotidine 20 mg tablet 20 mg PO BID 90 days #180 tabs 06/13/23 lisinopril 10 mg tablet 10 mg PO DAILY 90 days #90 tabs 06/13/23 oxycodone 5 mg capsule 5 mg PO Q8H PRN pain 3 days #10 caps 06/13/23 ticagrelor 90 mg tablet (Brilinta) 90 mg PO BID 90 days #180 tabs 06/13/23 Hospital Course Operations None Procedures ACLS performed, Cardiac catheterization, EKG, Intubation, Transthoracic echo and - (Chest x-ray) Summary of Care Provided Minutes Spent on Discharge: 38 Hospital Course: Patient is a 68-year-old female with no significant past medical history who presented to [facility] on 06/09/2023 with chest pain. Found on EKG to have ST elevations noted in leads II, III and aVF. Had V-fib arrest in the ED with defibrillation x2, with return of spontaneous circulation. Was intubated at that time and taken emergently to the [facility]. S/p PCI with drug-eluting stent x1 placed to the RCA. Had an estimated EF of 45 to 50% during the cath. Was transferred to the ICU post-cath. Was not in cardiogenic shock, did not require placement of any devices or any inotropic agents. Patient was successfully extubated to nasal cannula on 06/10. TTE on 06/11 showed an EF of 55%, no regional wall motion abnormalities, no valvular changes. Patient had no issues on telemetry and remained full throughout the rest of the hospitalization. She was initiated on an SHERIF inhibitor with no issue prior to discharge. Beta-deborah was held on discharge, as patient had normal EF and had borderline sinus bradycardia for a good portion of the hospitalization. Cardiology followed throughout the admission and will see her in the office shortly after discharge. Cardiac rehab also saw the patient and will schedule her for an outpatient appointment soon. Patient discharged on dual antiplatelet therapy, lisinopril, statin. Patient was also found to have a positive sputum culture growing strep pneumonia, discharged on cefdinir with plan to complete a 7-day course of antibiotics total. Patient did not have a PCP prior to this hospitalization, case management provided patient with PCP options and she will make an appointment on discharge. Patient was discharged home in stable condition. Discharge diagnoses: ? STEMI ? Cardiac arrest ? Acute hypoxic respiratory failure, resolved ? Type 2 diabetes ? Hypokalemia, resolved PCP follow-up: Will need close follow-up with cardiology and cardiac rehab on discharge. Total clinical time spent by myself addressing the patient's discharge needs: 38 minutes. Physical Exam Const alert, oriented x3, no apparent distress and well nourished Constitutional Narrative: Pleasant female, obese, sitting comfortably in bedside chair, conversing normally, no acute distress. General Appearance: cooperative and comfortable HEENT normocephalic, head/scalp atraumatic, hearing grossly normal bilaterally, nasal mucous membranes and turbinates normal and moist oral mucous membranes Eyes PERRL, EOMs intact bilaterally and conjunctivae normal Neck full ROM, no lymphadenopathy and supple Lymph Lymphatic: no lymphadenopathy noted Chest Chest Narrative: Mild bruising noted on chest at CPR site. Resp normal respiratory effort, normal air movement, no use of accessory muscles and clear to auscultation bilaterally Resp Narrative: Satting well on room air, no increased work of breathing noted. Cardio regular rate, regular rhythm, no murmurs and peripheral pulses 2+ throughout GI normal to inspection, nondistended, normoactive bowel sounds, soft to palpation, non-tender and non-distended Back/Spine normal ROM Extremity normal to inspection, full ROM and no pedal edema Skin no rashes or lesions noted Psych mental status grossly normal Weight / BMI Weight Weight: 88.5 kg Body Mass Index (BMI) 31.4 ABG / Lab / Microbiology Data 06/11/23 04:20 06/11/23 04:20 Microbiology: Microbiology 06/09/23 23:50 Sputum, Tracheal Aspirate Gram Stain - Final 06/09/23 23:50 Sputum, Tracheal Aspirate Respiratory Culture - Final Streptococcus pneumoniae D/C Instructions Discharge Diet: No restrictions Weight Bearing Status: Full weight bearing Pending Tests Upon Discharge: None Meaningful Use Info Meaningful Use Diagnoses (Choose all that apply): None applicable Discharge Plan Admission Admit Date/Time: 06/09/23 20:49 Primary Reason for Your Visit: STEMI Attending Provider: Caesar Carpio Primary Care Provider: Care Physician,No Primary Consulting Providers: Gómez Leal; Bob Lewis; Kelsey Marte; Kam Vu; Jarrett Escobar; Shashi George; Pawel Hernandez; Varsha Lentz QUILL REAMER Instructions Additional Instructions / Restrictions: Please see your medication list as noted below for reference on all medications that you should be taking at home going forward. Please take cefdinir twice daily for the next 5 days to complete a 7-day course of antibiotics for your strep pneumonia. The cardiology office will call to you for a follow-up appointment in the near future. The cardiac rehab office will also call to schedule you for a follow-up appointment. Discharge Orders/Prescriptions Prescriptions: New atorvastatin 40 mg Tablet 40 mg PO QHS 90 Days Qty: 90 0RF aspirin 81 mg Tablet,Delayed Release (Dr/Ec) 81 mg PO DAILY@0800 90 Days Qty: 90 0RF famotidine 20 mg Tablet 20 mg PO BID 90 Days Qty: 180 0RF lisinopril 10 mg Tablet 10 mg PO DAILY 90 Days Qty: 90 0RF Brilinta 90 mg Tablet 90 mg PO BID 90 Days Qty: 180 3RF cefdinir 300 mg capsule 300 mg PO BID 5 Days Qty: 10 0RF oxycodone 5 mg capsule 5 mg PO Q8H PRN (Reason: pain) 3 Days Qty: 10 0RF Referrals / Follow Up: Care Physician,Sharmaine Primary [Primary Care Provider] - Charleen Murguia QUILL REAMER, QUILL REAMER-C [Non-Staff -Ordering Privileges] - 07/04/23 2:00 pm Disposition Disposition (needs filled in before D/C Order can be placed): Home, Self Care Charges/Coding Visit Charges Inpatient E&M: 19497 Disch Hosp >30min
--- NOTE | 2023-06-13 14:14 | CASEMGMT ---
RN CM in to discuss needs at discharge. Patient denied needs at discharge. Scripts were sent to [facility] in [place]. Patient requesting scripts be filled at [facility]. RN CM called [facility] and requested transfer of script, [facility] to call [facility]. Patient had no further questions or concerns.
[2023-06-13] MEDS: Lisinopril 10 MG Tablet PO (14:16)
== END 2023-06-13 15:42 | disposition home or self-care (01) | DRG 246 ==
LOC: ED 20:13 → ICU 20:14 → PCU 06-13 10:18
PROVIDERS: Hospitalist; Internal Medicine Critical Care Medicine; Admitting Provider Specialist; Emergency Provider Emergency Medicine; Referring Provider Specialist; Visit Provider Hospitalist
DX: I21.19 ST elevation (STEMI) myocardial infarction involving other coronary artery of inferior wall (principal); J96.01 Acute respiratory failure with hypoxia; I46.2 Cardiac arrest due to underlying cardiac condition; R57.0 Cardiogenic shock; J13 Pneumonia due to Streptococcus pneumoniae; I49.01 Ventricular fibrillation; E11.65 Type 2 diabetes mellitus with hyperglycemia; E87.6 Hypokalemia; I25.10 Atherosclerotic heart disease of native coronary artery without angina pectoris; E66.9 Obesity, unspecified; Z68.31 Body mass index [BMI] 31.0-31.9, adult; Z79.02 Long term (current) use of antithrombotics/antiplatelets; Z79.82 Long term (current) use of aspirin; Z79.84 Long term (current) use of oral hypoglycemic drugs; Z79.899 Other long term (current) drug therapy; Z82.49 Family history of ischemic heart disease and other diseases of the circulatory system
CPT/HCPCS: 31500; 31720; 36600; 71045; 80048; 80053; 80061; 80076; 82550; 82803; 82962; 83036; 83735; 84100; 84478; 84484; 85025; 85027; 87070; 87077; 87186; 87205; 92941; 92950; 93005; 93306; 93458; 94002; 94003; 94668; 97162; C1757; J7030; J7040; J7050; Q9957; Q9967; A4216; C1725; C1769; C1874; C1887; C1894; C8929; C9606; J1327; J2405; J3475

== ENCOUNTER → 2023-06-25 | Outpatient (CLI) | payer MEDICARE, OTHER, SELFPAY ==
--- NOTE | 2023-06-25 12:51 | CR.HP_ITS ---
CR - History & Physical General Arrival date:: 06/25/23 Arrival time:: 12:52 Date of Referral:: 06/12/23 Date of CR Evaluation:: 06/25/23 Referring Physician: Dr. Marte Primary Diagnosis: PCI with coronary stent History of Present Cardiac Event Onset Date PTCA or coronary stenting:: Yes Vessel: RCA Medications Ambulatory Orders Medication Instructions Recorded aspirin 81 mg tablet,delayed 81 mg PO DAILY@0800 90 days #90 06/13/23 release tabs atorvastatin 40 mg tablet 40 mg PO QHS 90 days #90 tabs 06/13/23 cefdinir 300 mg capsule 300 mg PO BID 5 days #10 caps 06/13/23 famotidine 20 mg tablet 20 mg PO BID 90 days #180 tabs 06/13/23 lisinopril 10 mg tablet 10 mg PO DAILY 90 days #90 tabs 06/13/23 oxycodone 5 mg capsule 5 mg PO Q8H PRN pain 3 days #10 06/13/23 caps ticagrelor 90 mg tablet (Brilinta) 90 mg PO BID 90 days #180 tabs 06/13/23 Allergies Allergies No Known Allergies Allergy (Verified 06/09/23 20:46) Sleep Disorder Evaluation Hx of Sleep Apnea: No Do you snore loudly (louder than talking or can be heard through closed doors)?: No Do you often feel tired/ fatigued/ sleepy during daytime?: No Has anyone observed you stop breathing during sleep?: No History of Hypertension (for STOP score): No STOP Results: Negative Advanced Directives Advanced Directives Power of Recyclable Materials Distributor: No Living Will: No Advance Directives Information Provided: No Advance Directives on File: No DNR Order?:: No Past Medical History Covid-19 Screening Physicial Symptoms Other Clinical Concerns Exposure Risk Pertinent Comorbidities 65 years or older:: Yes Has a serious heart condition:: Yes Diabetic:: Yes Past Medical Illness Past Medical History (Updated 06/21/23 @ 00:10 by Background Daemon) Cardiac arrest I46.9 Multi-vessel coronary artery stenosis (06/10/23) I25.10 Mid LAD: 100% stetnosis R to L collaterals that fill med to distal LAD; Diagonal 1 Proximal 80% stenosis: vessel is 1.75 to 2 mm diameter. CX 50-60% stenosis; Proximal RCA: 100% stenosis which was stented 06/10/23 Past Surgical History Past Surgical History (Updated 06/21/23 @ 00:10 by Background [employer]) Stented coronary artery (06/10/23) Z95.5 Successful Thrombectomy and BASILIA to proximal RCA (4.0 X 38 mm Resolute Mani BASILIA) Social History Alcohol Use Alcohol Usage: Yes (socially) Occupation Occupation (List type of work in comments):: Employed Hours worked per day:: 6 Hobbies, Recreation, Social Activities Hobbies: Woodworking and Sewing Recreational Activities: I am able to engage in all my recreational activities Social Environment Status Marital Status: Single Current Living Arrangements Living Environment:: Alone Children How many children do you have?: 2 Do any of your children live nearby?: Yes Safety Do you feel safe in your surroundings?: Yes Assistance Do you need any assistance at home?: no Review of Systems Review of Systems Hints Review of Present Symptoms: Reports Shortness of Breath with Exertion, Operative Discomfort, Fatigue, Appetite - Normal, Appetite - Special Diet and Sleep - Normal; Denies Shortness of Breath at Rest, PVD, Angina, Wound Healing, D izziness/Lightheadedness, Heart Arrhythmia/Irregularities or Sexual Changes Pain Is Patient Pain Free?: No Pain Location: chest (rib pain from CPR) Pain Level: 3/10 Risk Factor Assessment Chief Complaint Chief Complaint: PCI with coronary stent Vital Signs Pulse Ox: 98 Blood Pressure: 180/88 (pt states she has been running high) Pulse Pulse Rate: 60 Pulse Rhythm: Regular Hypertension How long have you been treated?: since her PCI Obesity Height: 5 ft 6.14 in Nutritional Referral for Obesity: No Physical Inactivity Physical Inactivity: Recreational activity Risk Stratification Risk Guidelines: Lowest Risk: Risk Factor for Smoking and Risk Factor for Sed entary Lifestyle, Moderate Risk: Risk Factor for Dyslipidemia, Risk Factor for Obesity, Risk Factor for Hypertension and Risk Factor for Depression and Highest Risk: Risk Factor for Diabetes For Smoking Smoking Risk Guidelines For Dyslipidemia Dyslipidemia Risk Guidelines For Diabetes Mellitus Diabetes Risk Guidelines For Obesity/Overweight Obesity/Overweight Risk Guidelines For Hypertension Hypertension Risk Guidelines For Sedentary Lifestyle Sedentary Lifestyle Risk Guidelines For Depression Depression Risk Guidelines Motivation Motivation to Participate On a scale of 1 to 10, how prepared are you to commit to attending program?: 7 What do you see as barriers to successfully being able to complete the program?: no What do you see as the benefits of succesfully completing the program? In other words, what do you hope to get out of participating in the program?: more stamina, stronger Are there issues you are dealing with that will interfere with completing the program?: no Do you have a spouse or signficant other, family or friends who will help support you to complete the program?: yes
--- NOTE | 2023-06-25 12:58 | CR.ITP_ITS ---
Diagnosis General Information Admitting Diagnosis: PCi with coronary stent Secondary Diagnosis: STEMI Personal Learning Style:: Audio/Visual Stage of change r/t lifestyle modifications:: Contemplation Gave educational material for:: Treating Heart Disease, How The Heart Works, What it means to have Heart Disease, How Coronary Artery Disease is Diagnosed, Heart Procedures, What Heart Medications Do, Risk Factors & Modifications, Living an Active Life, Nutrition, Emotions & Heart Disease, Stress Management & Relaxation and Sleep Disorders & Heart Disease Diagnosis & Disease Process Outcomes/Goals: Pt IDs own risk factors & lifestyle modifications by Session 10, Verbalizes symptoms of angina & response by session 3., Pt independently manages and Other Additional Outcomes/Goals: Plan/Interventions: Assist Pt to ID & engage in lifestyle modification to reduce CVD risk, Instruct on individual risk factors, Review symptoms of angina & emergency actions, Review secondary diagnosis & identify educational needs. and Other see comment 30 day Reassessments:: Not Met 30 day Reassessments:: Not Met 30 day Reassessments:: Not Met 30 day Reassessments:: Not Met Final Reassessments:: Not Met Safety Referral to Physical Therapy: No Referral to [facility] Case Management: No Fall Risk Assessed:: Yes Assistive Devices:: None Exercise - Initial Assessment Visit Date of Eval: 06/25/23 (initial eval ) Mets: Pre-: >3 METS for 30 minutes by discharge, >5 METS for 30 minutes by discharge, >7 METS for 30 minutes by discharge and Unable to meet goal due to: (see comment below) Physician Prescribed Exercise Modalities: Treadmill, Rower, Airdyne, NuStep, SciFit and Lateral [employer] Frequency: 2x/week for 18 weeks [36 sessions] and 3x/week for 12 weeks [36 sessions] Intensity: 60-80% of age predicted maximum heart rate reserve Duration: 30 - 45 minutes Current METSs:: 3 Target Heart Rate:: 92-115 Resting Blood Pressure: 180/88 Outcomes & Goals Goals:: Verbalizes understanding of THR, RPE & goal METS by session 6, Documents in home exercise log/reports 30 min aerobic 5 day/wk by DC, Demonstrates accurate pulse taking by DC and Other additional outcome/goals: see below Intervention & Plan Exercise Program Goals: Instruct on personal THR & RPE, Instruct on MET level & personal MET goal, Show patient to take own pulse /validate performance until accurate, Instruct on home exercise and Other additional plan/int Physical Activity Home Exercise Physical Activity - Home Exercise: Safe Exercise, Warm-up, Self-monitoring, Cool-Down, Home Exercise > 30 min Daily and Sitting Time <3 hours/daily Outcomes & Goals Outcomes/Goals: Demonstrates correct Warm-up/exercise Cool-Down (S3) if = 2.5 METs, Verbalizes symptoms of exercise intolerance by Session 3 (S3), Demonstrate safe equipment use (S3) & follows exercise prescrition (6) and Other: See below Intervention & Plan Plan/Intervention: Instruct warm-up & cool-down if exercising at > 2 METs, Instruct on symptoms of exercise intolerance & actions to take, Instruct & monitor on saf, Assess intial functional capacity & safety risk and Other See below Nutrition - Initial Assessment Program Goals Nutrition Program Goals Patient has diagnosis of Hyperlipidemia (ICD E78)?: No Visit Date of Eval: 06/25/23 (initial eval ) Cholesterol/Lipids (Other Core Measures) Determine presence & major risk factors that modify LDL goal: Hypertension or hypertensive medication, Low HDL cholesterol <40 mg/dL*, Family history of premature CHD in Male < 55 years: female <65 yearsFa and Age men > 45 years; women >/= 55 years Outcomes/Goals: Pt IDs own risk factors & lifestyle modifications by Session 10, Verbalizes symptoms of angina & response by session 3., Pt independently manages and Other Additional Outcomes/Goals: Intervention/Plan: Advocate for lipid panel cholesterol medication if applicable, Instruct on personal lipid levels & lipid goals/NCEP guidelines, Instruct on cholesterol and Other additional plan/int Referral to dietitian:: No Diabetes (Other Core Measures) Diabetes Type: Not Applicable (per pt) Weight Mgt (Other Care) Height: 5 ft 6.14 in Diagnosis Overweight/Obesity BMI> 30% ICD-10 E66: No Diagnosis High BMI/Morbid Obesity BMI> 35% ICD-10 Z68: No Outcomes/Goals: Pt sets, maintains & shows weight loss goal & trend during rehab and Other additional outcomes/goals Intervention/Plan: Instruct on ideal BMI & set weight loss goal w/patient, Assist pt to ID & incorporate diet changes for weight loss by S9, Refer to Structured Weight Loss program as appropriate, Encourage goal of using 250- 300dcal per session for weight loss and Other additional plan/interventions Healthy Eating Habits Will attend diet classes:: Yes Outcomes/Goals:: Consume diet rich in vegs,fruits,whole grain/high fiber,fish,lean meat, Limit sat/trans fats,cholesterol & added salts & sugars and Other additional outcome/goals: Intervention/Plan:: Assess current eating habits and Other Additional plan/interventions Education Gave educational materials for:: Signs & symptoms of hypoglycemia, Signs & symptoms of hyperglycemia, Relate diabetes to coronary artery disease and Healthy eating Core - Initial Assessment Visit Date of Eval: 06/25/23 (initial eval ) Medication Compliance Preventative Medication(s):: Aspirin, SHERIF inhibitor, Ticagrelor/P2Y12 inhibitor and Statin/lipid H/O mental health issues: depression, anxiety, or addiction?: No Doesn?t believe in the benefits of treatment?: No Believes medications are unnecessary or harmful?: No Has a concern about medication side effects?: No Expresses concern over the cost of medications?: No Outcomes/Goals: Verbalizes medications,desired effect & common side effects @ DC, Pt self-reports following medication regimen, Keeps card in wallet w/medications listed by DC and Other additional outcome/goals: Interventions/plans: Instruct on medication effects & side effects, Review medication list w/patient every two weeks, Instruct importance of taking meds as ordered & assist problem solving and Other additional Tobacco Use Tobacco Use: Non-smoker Hypertension Resting Blood Pressure:: 180/88 [place] Heart Association Hypertension Guidelines Outcomes/Goals: Able to verbalize/achieve optimal blood pressure <130/80, Incorporates diet changes & exercise for blood pressure control by DC and Other additional outcomes/goals Interventions/plan: Instruct on optimal blood pressure, hypertension & medications, Instruct on effects of sodium, alcohol, stress, exercise &hypertension and Other additional plan/interventions Tobacco Cessation Referral Smoking Cessation Referral:: No Individual Education/Counseling:: No Education Schedule Given:: Yes Psychosocial - Initial Assess VIsit Date of Eval: 06/25/23 (initial eval ) History of previous Mental disease:: No Target Goals Target Goals Psychosocial Test Tool Used:: Ferrans Power QOL Cardiac and PHQ-9 Questionnaire phq-9 Severity Outcomes/Goals: See list Psychosocial Outcomes/Goals:: ID's personal stressors & 2 strategies to manage stress by discharge and Other Additional outcome/goals: Intervention/Plan: See List Interventions/Plan:: Assess stressors,coping strategies & signs of derpression on admission, Instruct/assist pt to develop coping & personal stress Mgt strategies, Refer to Behavioral Health if appropriate, Refer to Physician if appropriate, Instruct patient to recognize signs & symptoms of depression, Instruct patient to recog and Other additional plan/intervention Patient Health Questionnaire PHQ-9 Screening Initial Assessment: 1. Little interest or pleasure in doing things: Not at all 2. Feeling down, depressed, or hopeless: Not at all 3. Trouble falling or staying asleep, or sleeping too much: Not at all 4. Feeling tired or having little energy: Not at all 5. Poor appetite or overeating: Several days 6. Feeling bad about yourself -- or that you are a failure or have let yourself or your family down: Not at all 7. Trouble concentrating on things, such as reading the newspaper or watching television: Not at all 8. Moving or speaking so slowly that other people could have noticed. Or the opposite - being so fidgety or restless that you have been moving around a lot more than usual: Not at all 9. Thoughts that you would be better off , or of hurting yourself in some way: Not at all How difficult have these problems made it for you to do your work, take care of things at home, or get along with other people?: Not difficult at all Total Score: 1 NATALIE-Q SV Test Statements CAD is a disease of the arteries in the heart: False Examples of risk factors for heart disease: True Angina is chest pain or discomfort: True The benefits of resistance training include: True Eating more meat and dairy products: False Anti-platelet medications such as aspirin are important: True The only effective way to manage stress: False An exercise warm-up slowly increases heart rate: I Don't Know Prepared, processed foods usually have high sodium: True Depression is common after a heart attack: True The statin medications lower cholesterol: True To control blood pressure, lower the amount of sodium: I Don't Know If someone gets chest discomfort during walking: False Transfats are partially hydrogenated vegetable oils: True Sleep apnea that is not treated increases the risk: I Don't Know To control cholesterol, one should become a vegetarian: False Someone knows if he/she is exercising at the right level: I Don't Know Diabetes cannot be prevented with exercise & health eating: I Don't Know Stress is a large risk for heart attack: True A diet that can help lower blood pressure is rich in: False Total Score Total Correct Responses: 14 Self-Efficacy 6-Item Scale Initial Assessment: We would like to know how confident you are in doing certain activities. Please select your confidence level for: Fatigue Select Number: 10 Physical Discomfort or Pain Select Number: 10 Emotional Distress Select Number: 10 Other Symptoms or Health Problems Select Number: 10 Different Tasks and Activities Select Number: 10 Medication Select Number: 10 Total Score:: 10 Nutrition Survey Nutrition Survey Instructions Scoring Instructions Nutrition Survey Initial: Have you lost >10 lbs over the past 2 months without trying?: No Are you following a special diet at home for diabetes, low fat, or low salt?: No Are you interested in meeting with a dietitian for help understanding your diet?: No Do you eat less than 3 meals a day?: No Do you eat fatty meats (bennett, sausage, ribs, etc), fried foods, desserts, large amounts of salad dressings, margarine, butter, or cheese most days?: No Do you have food allergies? [Enter types in comment field]: No Do you eat in restaurants more than 3 times a week?: No Do you season food with salt, seasoning salt, or garlic salt?: Yes Do you used canned, boxed, frozen meals, or soups, seasoning packets?: No Total Score:: 1 Exercise - Final/Discharge Physician Prescribed Exercise Modalities: Treadmill, Rower, Airdyne, NuStep, SciFit and Lateral [place] Frequency: 2x/week for 18 weeks [36 sessions] and 3x/week for 12 weeks [36 sessions] Intensity: 60-80% of age predicted maximum heart rate reserve Current METSs:: 3 Target Heart Rate:: 92-115 Nutrition - 30-Day Assessment Weight Mgt (Other Care) Height: 5 ft 6.14 in Nutrition - 60-Day Assessment Weight Mgt (Other Care) Height: 5 ft 6.14 in Core - Final Assessment Hypertension Resting Blood Pressure:: 180/88 [place] [employer] Hypertension Guidelines Core - 60-Day Assessment Hypertension Resting Blood Pressure:: 180/88 [place] [employer] Hypertension Guidelines Psychosocial - 30-Day Assess Target Goals Target Goals Psychosocial - 60-Day Assess Target Goals Target Goals Psychosocial - 90-Day Assess Target Goals Target Goals Psychosocial - Final Assessmen Target Goals Target Goals Nutrition - 90-Day Assessment Weight Mgt (Other Care) Height: 5 ft 6.14 in Nutrition - Final Assessment Program Goals Patient has diagnosis of Hyperlipidemia (ICD E78)?: No Weight Mgt (Other Care) Height: 5 ft 6.14 in
[2023-06-25 13:15] VITALS: PULSE 60; O2SAT 98
[2023-06-25 13:24] VITALS: BP 180/88
[2023-06-25 14:11] VITALS: BP 180/88
== END | disposition home or self-care (01) ==
LOC: CR 12:39
PROVIDERS: Referring Provider Specialist; Visit Provider Specialist
DX: Z00.00 Encounter for general adult medical examination without abnormal findings (principal)

== ENCOUNTER → 2023-07-06 | Outpatient (CLI) | payer MEDICARE, OTHER, SELFPAY ==
[2023-07-06 10:08] LABS: AST(SGOT) 19 U/L (15-37); Alanine Aminotransfer ALT/SGPT 37 U/L (13-56); Albumin, Serum 3.7 g/dL (3.2-5.0); Alkaline Phosphatase 94 U/L (45-117); Bilirubin, Direct 0.28 mg/dL (0.00-0.30); Cholesterol 232 mg/dL (200); High Density Lipoprotein 42 mg/dL; Protein, Total 7.7 g/dL (6.4-8.2); Triglycerides 183 mg/dL; Very Low Density Lipoprotein 37 mg/dL (5-40)
== END | disposition home or self-care (01) ==
LOC: LAB 09:08
PROVIDERS: PCP Internal Medicine; Referring Provider Nurse Practitioner Gerontology; Visit Provider Nurse Practitioner Gerontology
DX: E78.5 Hyperlipidemia, unspecified (principal)
CPT/HCPCS: 36415; 80061; 80076

== ENCOUNTER 2023-08-06 09:30 | Outpatient (RCR) | payer MEDICARE, OTHER, SELFPAY ==
--- NOTE | 2023-07-25 07:04 | PCM.CR.ITP ---
Nutrition - Initial Assessment Weight Mgt (Other Care) Height: 5 ft 4 in Weight:: 175 lb 8 oz BMI: 30.1 Core - Initial Assessment Visit Date of Eval: 07/25/23 Session #:: 8 Medication Compliance Preventative Medication(s):: Aspirin, Ticagrelor/P2Y12 inhibitor, Statin/lipid and Beta deborah H/O mental health issues: depression, anxiety, or addiction?: No Doesn?t believe in the benefits of treatment?: No Believes medications are unnecessary or harmful?: No Has a concern about medication side effects?: No Expresses concern over the cost of medications?: No Outcomes/Goals: Verbalizes medications,desired effect & common side effects @ DC, Pt self-reports following medication regimen and Keeps card in wallet w/medications listed by DC Interventions/plans: Instruct on medication effects & side effects, Review medication list w/patient every two weeks and Instruct importance of taking meds as ordered & assist problem solving Tobacco Use Tobacco Use: Non-smoker Hypertension Hypertension Diagnosis:: Hypertension ICD-10 I10 Resting Blood Pressure:: 118/70 [place] [employer] Hypertension Guidelines Peak Exercise Blood Pressure:: 168/70 Outcomes/Goals: Able to verbalize/achieve optimal blood pressure <130/80 and Incorporates diet changes & exercise for blood pressure control by DC Interventions/plan: Instruct on optimal blood pressure, hypertension & medications and Instruct on effects of sodium, alcohol, stress, exercise &hypertension Tobacco Cessation Referral Smoking Cessation Referral:: No Individual Education/Counseling:: No Education Schedule Given:: Yes Psychosocial - Initial Assess Target Goals Target Goals Referral to Behavioral Health PS - Interventions: Yes: Attend Stress Management Classes and No: Referral to Behavioral Health if PHQ-9 score >9:, No: Referral to [facility] and No: Referral to Physician if PHQ-9 if score is 5-9: Patient Health Questionnaire PHQ-9 Screening 30-Day Re-eval Assessment: 1. Little interest or pleasure in doing things: Not at all 2. Feeling down, depressed, or hopeless: Not at all 3. Trouble falling or staying asleep, or sleeping too much: Not at all 4. Feeling tired or having little energy: Not at all 5. Poor appetite or overeating: Several days 6. Feeling bad about yourself -- or that you are a failure or have let yourself or your family down: Not at all 7. Trouble concentrating on things, such as reading the newspaper or watching television: Not at all 8. Moving or speaking so slowly that other people could have noticed. Or the opposite - being so fidgety or restless that you have been moving around a lot more than usual: Not at all 9. Thoughts that you would be better off , or of hurting yourself in some way: Not at all How difficult have these problems made it for you to do your work, take care of things at home, or get along with other people?: Not difficult at all Total Score: 1 Self-Efficacy 6-Item Scale 30-Day Re-eval Assessment: We would like to know how confident you are in doing certain activities. Please select your confidence level for: Fatigue Select Number: 10 Physical Discomfort or Pain Select Number: 10 Emotional Distress Select Number: 10 Other Symptoms or Health Problems Select Number: 10 Different Tasks and Activities Select Number: 10 Medication Select Number: 10 Total Score:: 10 Nutrition Survey Nutrition Survey Instructions Scoring Instructions Exercise - 30-day Assessment Visit Date of Eval: 07/25/23 Session #:: 7 Physician Prescribed Exercise Modalities: Treadmill, Airdyne and NuStep Frequency: 3x/week for 12 weeks [36 sessions] Intensity: 60-80% of age predicted maximum heart rate reserve Duration: 30 - 45 minutes Current METSs:: 5.0 Target Heart Rate:: 92-115 Current RPE:: 11-13 Maximum Excercise HR:: 116 Resting Blood Pressure: 152/80 Maximum Exercise Blood Pressure: 168/70 EKG Type: NSR to sinus tach with T wave inversion, rare PAC and PVC Current Physical Activity or Exercising minutes: 36:44 Outcomes & Goals Goals:: Verbalizes understanding of THR, RPE & goal METS by session 6, Documents in home exercise log/reports 30 min aerobic 5 day/wk by DC and Demonstrates accurate pulse taking by DC Intervention & Plan Exercise Program Goals: Instruct on personal THR & RPE, Instruct on MET level & personal MET goal, Show patient to take own pulse /validate performance until accurate and Instruct on home exercise 30-day Reassessments 30 day Reassessments:: Met Physical Activity Home Exercise Physical Activity - Home Exercise: Safe Exercise, Warm-up, Self-monitoring, Cool-Down, Home Exercise > 30 min Daily and Sitting Time <3 hours/daily Outcomes & Goals Outcomes/Goals: Demonstrates correct Warm-up/exercise Cool-Down (S3) if = 2.5 METs, Verbalizes symptoms of exercise intolerance by Session 3 (S3) and Demonstrate safe equipment use (S3) & follows exercise prescrition (6) Intervention & Plan Plan/Intervention: Instruct warm-up & cool-down if exercising at > 2 METs, Instruct on symptoms of exercise intolerance & actions to take, Instruct & monitor on saf and Assess intial functional capacity & safety risk 30-day Reassessments 30 day Reassessments:: Met Nutrition - 30-Day Assessment Program Goals Nutrition Program Goals Patient has diagnosis of Hyperlipidemia (ICD E78)?: Yes Visit Date of Eval: 07/25/23 Session #:: 8 Cholesterol/Lipids (Other Core Measures) Determine presence & major risk factors that modify LDL goal: Hypertension or hypertensive medication and Age men > 45 years; women >/= 55 years Outcomes/Goals: Pt IDs own risk factors & lifestyle modifications by Session 10, Verbalizes symptoms of angina & response by session 3. and Pt independently manages Intervention/Plan: Instruct on personal lipid levels & lipid goals/NCEP guidelines and Instruct on cholesterol Referral to dietitian:: Yes 30-day Reassessments:: Progressing Diabetes (Other Core Measures) Diabetes Type: Not Applicable Weight Mgt (Other Care) Height: 5 ft 4 in Weight:: 175 lb 8 oz BMI: 30.1 Diagnosis Overweight/Obesity BMI> 30% ICD-10 E66: Yes Diagnosis High BMI/Morbid Obesity BMI> 35% ICD-10 Z68: No Outcomes/Goals: Pt sets, maintains & shows weight loss goal & trend during rehab Intervention/Plan: Instruct on ideal BMI & set weight loss goal w/patient, Assist pt to ID & incorporate diet changes for weight loss by S9 and Refer to Structured Weight Loss program as appropriate 30 day Reassessments:: Progressing Healthy Eating Habits Will attend diet classes:: Yes Outcomes/Goals:: Consume diet rich in vegs,fruits,whole grain/high fiber,fish,lean meat and Limit sat/trans fats,cholesterol & added salts & sugars Intervention/Plan:: Assess current eating habits 30-day Reassessments:: Progressing Education Gave educational materials for:: Healthy eating Nutrition - 60-Day Assessment Weight Mgt (Other Care) Height: 5 ft 4 in Weight:: 175 lb 8 oz BMI: 30.1 Core - Final Assessment Hypertension Resting Blood Pressure:: 118/70 [place] [employer] Hypertension Guidelines Core - 60-Day Assessment Hypertension Resting Blood Pressure:: 118/70 [place] [employer] Hypertension Guidelines Psychosocial - 30-Day Assess VIsit Date of Eval: 07/25/23 Session #:: 8 Not Applicable: Yes History of previous Mental disease:: No Target Goals Target Goals Psychosocial Test Tool Used:: PHQ-9 Questionnaire phq-9 Severity Referral to Behavioral Health PS - Interventions: Yes: Attend Stress Management Classes and No: Referral to Behavioral Health if PHQ-9 score >9:, No: Referral to [facility] and No: Referral to Physician if PHQ-9 if score is 5-9: Outcomes/Goals: See list Psychosocial Outcomes/Goals:: ID's personal stressors & 2 strategies to manage stress by discharge Intervention/Plan: See List Interventions/Plan:: Assess stressors,coping strategies & signs of derpression on admission, Instruct/assist pt to develop coping & personal stress Mgt strategies, Instruct patient to recognize signs & symptoms of depression and Instruct patient to recog 30-day Reassessments: 30 day Reassessments:: Progressing Psychosocial - 60-Day Assess Target Goals Target Goals Referral to Behavioral Health PS - Interventions: Yes: Attend Stress Management Classes and No: Referral to Behavioral Health if PHQ-9 score >9:, No: Referral to [facility] and No: Referral to Physician if PHQ-9 if score is 5-9: Outcomes/Goals: See list Psychosocial Outcomes/Goals:: ID's personal stressors & 2 strategies to manage stress by discharge Psychosocial - 90-Day Assess Target Goals Target Goals Referral to Behavioral Health PS - Interventions: Yes: Attend Stress Management Classes and No: Referral to Behavioral Health if PHQ-9 score >9:, No: Referral to [facility] and No: Referral to Physician if PHQ-9 if score is 5-9: Psychosocial - Final Assessmen Target Goals Target Goals Referral to Behavioral Health PS - Interventions: Yes: Attend Stress Management Classes and No: Referral to Behavioral Health if PHQ-9 score >9:, No: Referral to [facility] and No: Referral to Physician if PHQ-9 if score is 5-9: Nutrition - 90-Day Assessment Weight Mgt (Other Care) Height: 5 ft 4 in Weight:: 175 lb 8 oz BMI: 30.1 Nutrition - Final Assessment Weight Mgt (Other Care) Height: 5 ft 4 in Weight:: 175 lb 8 oz BMI: 30.1
[2023-07-25 07:11] VITALS: BP 118/70; BP 152/80; BP 168/70; BMI 30.1
== END 2023-08-07 23:59 ==
LOC: CR 09:30
PROVIDERS: PCP Internal Medicine; Referring Provider Specialist; Visit Provider Specialist
DX: Z95.5 Presence of coronary angioplasty implant and graft (principal); I25.10 Atherosclerotic heart disease of native coronary artery without angina pectoris; R57.0 Cardiogenic shock; I46.9 Cardiac arrest, cause unspecified; I21.3 ST elevation (STEMI) myocardial infarction of unspecified site; J96.01 Acute respiratory failure with hypoxia
CPT/HCPCS: 93798

== ENCOUNTER 2023-09-05 09:30 | Outpatient (RCR) | payer MEDICARE, OTHER, SELFPAY ==
[2023-07-25 07:11] VITALS: BMI 30.1
[2023-08-08 00:08] VITALS: BP 118/70; BP 152/80; BP 168/70
--- NOTE | 2023-08-24 10:11 | PCM.CR.ITP ---
Nutrition - Initial Assessment Weight Mgt (Other Care) Height: 5 ft 4 in Weight:: 177 lb 8 oz BMI: 30.4 Core - Initial Assessment Hypertension Resting Blood Pressure:: 190/90 [place] [employer] Hypertension Guidelines Psychosocial - Initial Assess Target Goals Target Goals Patient Health Questionnaire PHQ-9 Screening 60-Day Re-eval Assessment: 1. Little interest or pleasure in doing things: Not at all 2. Feeling down, depressed, or hopeless: Not at all 3. Trouble falling or staying asleep, or sleeping too much: Not at all 4. Feeling tired or having little energy: Several days 5. Poor appetite or overeating: Not at all 6. Feeling bad about yourself -- or that you are a failure or have let yourself or your family down: Not at all 7. Trouble concentrating on things, such as reading the newspaper or watching television: Not at all 8. Moving or speaking so slowly that other people could have noticed. Or the opposite - being so fidgety or restless that you have been moving around a lot more than usual: Not at all 9. Thoughts that you would be better off , or of hurting yourself in some way: Not at all How difficult have these problems made it for you to do your work, take care of things at home, or get along with other people?: Not difficult at all Total Score: 1 Self-Efficacy 6-Item Scale 60-Day Re-eval Assessment: We would like to know how confident you are in doing certain activities. Please select your confidence level for: Fatigue Select Number: 10 Physical Discomfort or Pain Select Number: 10 Emotional Distress Select Number: 10 Other Symptoms or Health Problems Select Number: 10 Different Tasks and Activities Select Number: 10 Medication Select Number: 10 Total Score:: 10 Nutrition Survey Nutrition Survey Instructions Scoring Instructions Exercise - 60-day Assessment Visit Date of Eval: 08/24/23 Session #:: 21 Physician Prescribed Exercise Modalities: Treadmill, Airdyne and NuStep Frequency: 3x/week for 12 weeks [36 sessions] Intensity: 60-80% of age predicted maximum heart rate reserve Duration: 30 - 45 minutes Current METSs:: 6.5 Target Heart Rate:: 116-131 Current RPE:: 13 Maximum Excercise HR:: 124 Resting Blood Pressure: 144/80 Maximum Exercise Blood Pressure: 190/90 EKG Type: NSR to ST w/ Twave inversion with rare PAV and PVC Outcomes & Goals Goals:: Verbalizes understanding of THR, RPE & goal METS by session 6, Documents in home exercise log/reports 30 min aerobic 5 day/wk by DC, Demonstrates accurate pulse taking by DC and Other additional outcome/goals: see below Intervention & Plan Exercise Program Goals: Instruct on personal THR & RPE, Instruct on MET level & personal MET goal, Show patient to take own pulse /validate performance until accurate, Instruct on home exercise and Other additional plan/int 30-day Reassessments 30 day Reassessments:: Met Physical Activity Home Exercise Physical Activity - Home Exercise: Safe Exercise, Warm-up, Self-monitoring, Cool-Down, Home Exercise > 30 min Daily and Sitting Time <3 hours/daily Outcomes & Goals Outcomes/Goals: Demonstrates correct Warm-up/exercise Cool-Down (S3) if = 2.5 METs, Verbalizes symptoms of exercise intolerance by Session 3 (S3), Demonstrate safe equipment use (S3) & follows exercise prescrition (6) and Other: See below Intervention & Plan Plan/Intervention: Instruct warm-up & cool-down if exercising at > 2 METs, Instruct on symptoms of exercise intolerance & actions to take, Instruct & monitor on saf, Assess intial functional capacity & safety risk and Other See below 30-day Reassessments 30 day Reassessments:: Met Nutrition - 30-Day Assessment Weight Mgt (Other Care) Height: 5 ft 4 in Weight:: 177 lb 8 oz BMI: 30.4 Nutrition - 60-Day Assessment Program Goals Nutrition Program Goals Patient has diagnosis of Hyperlipidemia (ICD E78)?: Yes Visit Date of Eval: 08/24/23 Session #:: 21 Cholesterol/Lipids (Other Core Measures) Determine presence & major risk factors that modify LDL goal: Cigarette smoking, Hypertension or hypertensive medication, Low HDL cholesterol <40 mg/dL*, Family history of premature CHD in Male < 55 years: female <65 yearsFa and Age men > 45 years; women >/= 55 years Outcomes/Goals: Pt IDs own risk factors & lifestyle modifications by Session 10, Verbalizes symptoms of angina & response by session 3., Pt independently manages and Other Additional Outcomes/Goals: Intervention/Plan: Advocate for lipid panel cholesterol medication if applicable, Instruct on personal lipid levels & lipid goals/NCEP guidelines, Instruct on cholesterol and Other additional plan/int Reassessment Notes & Comments:: pt to attend nutrition class Diabetes (Other Core Measures) Diabetes Type: Not Applicable Weight Mgt (Other Care) Height: 5 ft 4 in Weight:: 177 lb 8 oz BMI: 30.4 Diagnosis Overweight/Obesity BMI> 30% ICD-10 E66: Yes Diagnosis High BMI/Morbid Obesity BMI> 35% ICD-10 Z68: No Outcomes/Goals: Pt sets, maintains & shows weight loss goal & trend during rehab and Other additional outcomes/goals Intervention/Plan: Instruct on ideal BMI & set weight loss goal w/patient, Assist pt to ID & incorporate diet changes for weight loss by S9, Refer to Structured Weight Loss program as appropriate, Encourage goal of using 250-300dcal per session for weight loss and Other additional plan/interventions 30 day Reassessments:: Progressing Reassessment Notes & Comments:: pt to attend nutrition class Healthy Eating Habits Will attend diet classes:: Yes Outcomes/Goals:: Consume diet rich in vegs,fruits,whole grain/high fiber,fish,lean meat, Limit sat/trans fats,cholesterol & added salts & sugars and Other additional outcome/goals: Intervention/Plan:: Assess current eating habits and Other Additional plan/interventions 30-day Reassessments:: Progressing Reassessment Notes & Comments:: pt to attend nutrition class Education Gave educational materials for:: Signs & symptoms of hypoglycemia, Signs & symptoms of hyperglycemia, Relate diabetes to coronary artery disease and Healthy eating Core - Final Assessment Hypertension Resting Blood Pressure:: 190/90 [place] [employer] Hypertension Guidelines Core - 60-Day Assessment Visit Date of Eval: 08/24/23 Session #:: 21 Medication Compliance Preventative Medication(s):: Aspirin, SHERIF inhibitor, Ticagrelor/P2Y12 inhibitor and Statin/lipid H/O mental health issues: depression, anxiety, or addiction?: No Doesn?t believe in the benefits of treatment?: No Believes medications are unnecessary or harmful?: No Has a concern about medication side effects?: No Expresses concern over the cost of medications?: No Outcomes/Goals: Verbalizes medications,desired effect & common side effects @ DC, Pt self-reports following medication regimen, Keeps card in wallet w/medications listed by DC and Other additional outcome/goals: Interventions/plans: Instruct on medication effects & side effects, Review medication list w/patient every two weeks, Instruct importance of taking meds as ordered & assist problem solving and Other additional 30-day Reassessments:: Met Tobacco Use Tobacco Use: Non-smoker Hypertension Resting Blood Pressure:: 144/80 Resting Blood Pressure:: 190/90 [place] [employer] Hypertension Guidelines Outcomes/Goals: Able to verbalize/achieve optimal blood pressure <130/80, Incorporates diet changes & exercise for blood pressure control by DC and Other additional outcomes/goals Interventions/plan: Instruct on optimal blood pressure, hypertension & medications, Instruct on effects of sodium, alcohol, stress, exercise &hypertension and Other additional plan/interventions 30 day Reassessments:: Progressing Reassessment Notes & Comments:: pt encouraged to take her meds Tobacco Cessation Referral Smoking Cessation Referral:: No Individual Education/Counseling:: No Education Schedule Given:: Yes Psychosocial - 30-Day Assess Target Goals Target Goals Psychosocial - 60-Day Assess VIsit Date of Eval: 08/24/23 Session #:: 21 History of previous Mental disease:: No Target Goals Target Goals Psychosocial - 90-Day Assess Target Goals Target Goals Psychosocial - Final Assessmen Target Goals Target Goals Nutrition - 90-Day Assessment Weight Mgt (Other Care) Height: 5 ft 4 in Weight:: 177 lb 8 oz BMI: 30.4 Nutrition - Final Assessment Weight Mgt (Other Care) Height: 5 ft 4 in Weight:: 177 lb 8 oz BMI: 30.4
[2023-08-24 10:20] VITALS: BP 144/80; BP 190/90; BMI 30.4
== END 2023-09-06 23:59 ==
LOC: CR 09:30
PROVIDERS: PCP Internal Medicine; Referring Provider Specialist; Visit Provider Specialist
DX: Z95.5 Presence of coronary angioplasty implant and graft (principal); I25.10 Atherosclerotic heart disease of native coronary artery without angina pectoris; R57.0 Cardiogenic shock; I46.9 Cardiac arrest, cause unspecified; I21.3 ST elevation (STEMI) myocardial infarction of unspecified site; J96.01 Acute respiratory failure with hypoxia
CPT/HCPCS: 93798

== ENCOUNTER 2023-09-14 09:30 | Outpatient (RCR) | payer MEDICARE, OTHER, SELFPAY ==
[2023-08-24 10:20] VITALS: BMI 30.4
[2023-09-07 00:09] VITALS: BP 144/80; BP 152/80; BP 168/70; BP 190/90
== END 2023-10-07 23:59 ==
LOC: CR 09:30
PROVIDERS: PCP Internal Medicine; Referring Provider Specialist; Visit Provider Specialist
DX: Z95.5 Presence of coronary angioplasty implant and graft (principal); I25.10 Atherosclerotic heart disease of native coronary artery without angina pectoris; R57.0 Cardiogenic shock; I46.9 Cardiac arrest, cause unspecified; I21.3 ST elevation (STEMI) myocardial infarction of unspecified site; J96.01 Acute respiratory failure with hypoxia
CPT/HCPCS: 93798

== ENCOUNTER → 2024-04-03 | Outpatient (CLI) | payer MEDICARE, OTHER, SELFPAY ==
[2023-08-24 10:20] VITALS: BMI 30.4
[2024-04-03 11:27] LABS: AST(SGOT) 22 U/L (15-37); Alanine Aminotransfer ALT/SGPT 34 U/L (13-56); Albumin, Serum 3.6 g/dL (3.2-5.0); Alkaline Phosphatase 106 U/L (45-117); Bilirubin, Direct 0.35 mg/dL (0.00-0.30); Cholesterol 183 mg/dL (200); Globulin 3.9 g/dL (2.2-4.2); High Density Lipoprotein 54 mg/dL; Protein, Total 7.5 g/dL (6.4-8.2); Triglycerides 113 mg/dL; Very Low Density Lipoprotein 23 mg/dL (5-40)
[2024-04-03 11:28] LABS: Hemoglobin A1c 6.3 % (3.8-5.6)
== END | disposition home or self-care (01) ==
PROVIDERS: PCP Internal Medicine; Referring Provider Nurse Practitioner Gerontology; Visit Provider Nurse Practitioner Gerontology
DX: E78.5 Hyperlipidemia, unspecified (principal); E11.9 Type 2 diabetes mellitus without complications
CPT/HCPCS: 36415; 80061; 80076; 83036

== ENCOUNTER → 2024-09-30 | Outpatient (CLI) | payer MEDICARE, OTHER, SELFPAY ==
[2023-08-24 10:20] VITALS: BMI 30.4
[2024-09-30 11:43] LABS: Absolute Lymphocyte Count 2.39 X10^3/uL (0.83-4.51); Absolute Neutrophil Count 3.1 X10^3/uL (2.0-7.7); Basophil# 0.06 X10^3/uL; Eosinophils% 4.8 % (0-5); Hematocrit 46.7 % (37-47); Hemoglobin 15.2 g/dL (12.0-15.0); Lymphocyte # 2.39 X10^3/ul (0.83-4.51); Lymphocyte % 38.2 % (19-41); Mean Corp Hgb Conc 32.5 g/dL (32-36); Mean Platelet Vol. 10.4 fl (6.2-12.0); Monocyte# 0.41 X10^3/uL; Monocyte% 6.6 % (0-10); NRBC Flagged by Analyzer 0 % (0-5); Neutrophil # 3.06 X10^3/uL (2.7-7.7); Neutrophil % 48.9 % (47-70); Platelet Count 289 K/mm3 (150-450); RBC Distribution Width SD 39.1 fl (35.1-43.9); Red Blood Count 5.25 M/mm3 (4.2-5.4); White Blood Count 6.3 K/mm3 (4.4-11.0)
[2024-09-30 12:10] LABS: AST(SGOT) 21 U/L (15-37); Alanine Aminotransfer ALT/SGPT 34 U/L (13-56); Albumin, Serum 3.8 g/dL (3.2-5.0); Alkaline Phosphatase 110 U/L (45-117); Bilirubin, Direct 0.18 mg/dL (0.00-0.30); Cholesterol 352 mg/dL (200); High Density Lipoprotein 51 mg/dL; Protein, Total 7.8 g/dL (6.4-8.2); Triglycerides 180 mg/dL; Very Low Density Lipoprotein 36 mg/dL (5-40)
[2024-09-30 12:16] LABS: Anion Gap 3 (5-15); BUN 15 mg/dL (7-18); Calcium,Total 9.3 mg/dL (8.5-10.1); Chloride 103 mmol/L (98-107); Creatinine, Serum 0.84 mg/dL (0.55-1.02); EST Glomerular Filtration Rate 72 mL/min (>60); Est Glom Filt Rate - Afr Amer 87 mL/min (>60); Glucose 153 mg/dL (74-106); Potassium 4.3 mmol/L (3.5-5.1); Sodium Level 137 mmol/L (136-145)
[2024-10-03 12:08] LABS: Vitamin D 1,25-Dihydroxy 32.6 pg/mL (24.8-81.5)
== END | disposition home or self-care (01) ==
LOC: LAB 11:17
PROVIDERS: Nurse Practitioner Gerontology; PCP Internal Medicine; Referring Provider Physician Assistant Medical; Visit Provider Physician Assistant Medical
DX: E78.00 Pure hypercholesterolemia, unspecified (principal); I25.10 Atherosclerotic heart disease of native coronary artery without angina pectoris; R53.83 Other fatigue
CPT/HCPCS: 36415; 80048; 80061; 80076; 82652; 84443; 85025

== ENCOUNTER → 2024-10-15 | Outpatient (CLI) | payer MEDICARE, OTHER, SELFPAY ==
[2023-08-24 10:20] VITALS: BMI 30.4
--- NOTE | 2024-10-15 16:24 | STRESSREP_ITS ---
Stress Test Report Exercise myocardial perfusion stress test. 69-year-old lady with a history of multivessel coronary artery disease with fatigue Stress protocol: Resting EKG demonstrates normal sinus rhythm with a rate of 75 bpm resting blood pressure is 142/88 mmHg. The patient exercised according to the regular Kam protocol for a total duration of 4 minutes and 46 seconds attaining a maximum heart rate of 134 bpm which was 87% of maximum predicted heart rate; the maximum workload was 7 metabolic equivalents. At rest there were no ST or T wave rodríguez es noted to suggest ischemia and at peak exercise upsloping ST changes only were noted which did not meet the criteria for ischemia. No clinical angina was noted the test was terminated due to the target heart rate being achieved/fatigue. The peak blood pressure was 184/78 mmHg. Rate-pressure product was 24,100. Myocardial perfusion protocol. 14.1 mCi of technetium 99m sestamibi was injected at rest. The patient exercised according to regular Kam protocol for total duration of 4 minutes and 46 seconds and at peak exercise 42.8 mCi of technetium 99m sestamibi was injected stress images were obtained stress and rest images were reconstructed in comparing the short axis vertical long and horizontal long axis. Gated images were also obtained. Perfusion SPECT analysis: Review of the stress images demonstrate normal uptake of tracer noted in all areas of the myocardium. There is a small portion of the apex with reduced perfusion on the stress images with near complete reversibility noted on the resting images. The inferior wall however appears to be normally perfused. Gated SPECT analysis: The gated ejection fraction is over 60%. Conclusion: Mildly abnormal exercise myocardial perfusion stress test at a moderate workload. Apical ischemia present Preserved ejection fraction.
== END | disposition home or self-care (01) ==
LOC: CVS 06:39
PROVIDERS: PCP Internal Medicine; Referring Provider Physician Assistant Medical; Visit Provider Physician Assistant Medical
DX: I25.10 Atherosclerotic heart disease of native coronary artery without angina pectoris (principal); R53.83 Other fatigue
CPT/HCPCS: 78452; 93017; A9500; A4216

== ENCOUNTER → 2025-02-16 | Outpatient (CLI) | payer MEDICARE, OTHER, SELFPAY ==
[2023-08-24 10:20] VITALS: BMI 30.4
--- NOTE | 2025-02-16 13:41 | ECHOD_ITS ---
Reason For Study Reason For Study: CAD Procedure This was a 2D Doppler, Color Flow transthoracic echocardiogram. Exam performed in department. Left Ventricle Normal LV size. Left ventricular systolic function is normal. The left ventricular ejection fraction is 60 %. Stage 1 diastolic dysfunction. No regional wall motion abnormalities noted. Right Ventricle Normal RV size. Normal systolic function. Atria Normal left atrium. Normal right atrium. Mitral Valve Normal mitral valve. Tricuspid Valve Normal tricuspid valve. Aortic Valve Normal aortic valve. Trisinus/trileaflet aortic valve. Pulmonic Valve Normal pulmonic valve. Great Vessels Normal aortic root. The pulmonary artery is normal size. Inferior vena cava collapse with respiration. Pericardium/Pleural No pericardial effusion. MMode/2D Measurements & Calculations LVIDd: 4.2 cm IVSd: 0.84 cm Ao root diam: 2.9 cm LVIDs: 2.9 cm LVPWd: 0.95 cm RVDd: 2.8 cm FS: 31.7 % LAV(MOD-bp): 27.0 ml LVAd ap4: 22.6 cm2 SV(MOD-sp4): 36.7 ml LAV(MOD-bp) Indexed: 13.6 ml/m2 LVLd ap4: 7.3 cm SI(MOD-sp4): 18.5 ml/m2 LAV(MOD-sp2): 29.0 ml EDV(MOD-sp4): 58.8 ml LAV(MOD-sp4): 24.4 ml EDV(sp4-el): 59.6 ml LVAs ap4: 12.4 cm2 LVLs ap4: 5.8 cm ESV(MOD-sp4): 22.1 ml ESV(sp4-el): 22.3 ml EF(MOD-sp4): 62.5 % EF(sp4-el): 62.5 % SV(sp4-el): 37.2 ml LA A4 area: 12.7 cm2 LA dimension(2D): 3.7 cm RA A4 area: 10.9 cm2 Time Measurements MV dec time: 0.27 sec Doppler Measurements & Calculations MV E max kiko: 54.1 cm/sec Ao V2 max: 131.7 cm/sec LV V1 max: 111.2 cm/sec MV A max kiko: 76.3 cm/sec Ao max P.9 mmHg LV V1 max P.9 mmHg MV E/A: 0.71 TV V2 max: 194.1 cm/sec PA V2 max: 75.9 cm/sec TV max P.1 mmHg ECHO/Echo Complete Interpretation Summary Normal LV size. Left ventricular systolic function is normal. The left ventricular ejection fraction is 60 %. Stage 1 diastolic dysfunction. Ordering Physician: Charleen Murguia Referring Physician: ADRIANNA MOSS Performed By: Mala Arcos RDCS
== END | disposition home or self-care (01) ==
LOC: CVS 13:41
PROVIDERS: PCP Internal Medicine; Referring Provider Nurse Practitioner Gerontology; Visit Provider Nurse Practitioner Gerontology
DX: I25.10 Atherosclerotic heart disease of native coronary artery without angina pectoris (principal); R53.83 Other fatigue
CPT/HCPCS: 93306

== ENCOUNTER → 2025-02-20 | Outpatient (CLI) | payer MEDICARE, OTHER, SELFPAY ==
[2023-08-24 10:20] VITALS: BMI 30.4
[2025-02-20 11:47] LABS: AST(SGOT) 25 U/L (<=31); Alanine Aminotransfer ALT/SGPT 21 U/L (<=34); Albumin, Serum 4.2 g/dL (3.4-4.8); Alkaline Phosphatase 68 U/L (35-104); Bilirubin, Direct 0.39 mg/dL (0.00-0.30); Cholesterol 272 mg/dL (<=200); High Density Lipoprotein 38 mg/dL; Low Density Lipoprotein Calc. 207 mg/dL; Protein, Total 7.2 g/dL (5.9-8.4); Total Bilirubin 1.28 mg/dL (0.00-1.30); Triglycerides 132 mg/dL; Very Low Density Lipoprotein 26 mg/dL (5-40); cholesterol:hdl ratio screen 7.08
== END | disposition home or self-care (01) ==
LOC: LAB 09:00
PROVIDERS: PCP Internal Medicine; Referring Provider Nurse Practitioner Gerontology; Visit Provider Nurse Practitioner Gerontology
DX: E78.5 Hyperlipidemia, unspecified (principal); E55.9 Vitamin D deficiency, unspecified; R53.83 Other fatigue
CPT/HCPCS: 36415; 80061; 80076; 84443

== ENCOUNTER → 2025-03-31 | Outpatient (CLI) | payer MEDICARE, OTHER, SELFPAY ==
[2023-08-24 10:20] VITALS: BMI 30.4
[2025-03-31 16:19] LABS: AST(SGOT) 19 U/L (<=31); Alanine Aminotransfer ALT/SGPT 21 U/L (<=34); Albumin, Serum 4.1 g/dL (3.4-4.8); Alkaline Phosphatase 66 U/L (35-104); Bilirubin, Direct 0.33 mg/dL (0.00-0.30); Cholesterol 278 mg/dL (<=200); High Density Lipoprotein 42 mg/dL; Low Density Lipoprotein Calc. 206 mg/dL; Protein, Total 7.1 g/dL (5.9-8.4); Total Bilirubin 1.09 mg/dL (0.00-1.30); Triglycerides 147 mg/dL; Very Low Density Lipoprotein 29 mg/dL (5-40); cholesterol:hdl ratio screen 6.59
== END | disposition home or self-care (01) ==
LOC: LAB 11:38
PROVIDERS: PCP Internal Medicine; Referring Provider Nurse Practitioner Gerontology; Visit Provider Nurse Practitioner Gerontology
DX: E78.5 Hyperlipidemia, unspecified (principal)
CPT/HCPCS: 36415; 80061; 80076